=== PATIENT | male | born 1940 | race Caucasian/White ===

== ENCOUNTER → 2016-04-28 | Outpatient (CLI) | payer OTHER ==
[~2016-04-28] MED LIST: ARC10 PO; ASPEC81 PO; AZL/5 PO; CLC150 PO; CYM30 PO; HYDR-3983 PO; JNV100 PO; LPR25 PO; LPT40 PO; NRN400 PO; PLV75 PO; RQP25 PO; TRC48 PO
[2016-04-28 13:36] LABS: URINE APPEARANCE CLEAR (CLEAR); URINE BILIRUBIN NEG (NEG); URINE COLOR DK YELLOW; URINE NITRITE NEG (NEG); URINE SPECIFIC GRAVITY 1.023 (1.000-1.030); UROBILINOGEN NEG (NEG); ZZUR CULT IF INDIC CLEAN CATCH NO
[2016-04-28 13:38] LABS: MANUAL MICROSCOPIC REQUIRED? NO; REVIEW REQ? NO
== END | disposition home or self-care (01) ==
LOC: C.LABMFLN 09:39
PROVIDERS: ATTEND Family Medicine
DX: R35.0 Frequency of micturition (principal)

== ENCOUNTER → 2016-07-23 | Outpatient (CLI) | payer OTHER ==
[~2016-07-23] MED LIST changes: +ASPI81TA28 PO; +ATOR-26 PO; +CETI10TA84 PO; +CLOP1TAB15 PO; +DONE10TA12 PO; +DULO1CAP40 PO; +FINA5TAB PO; +FOLI1TAB7 PO; +GLC/500 PO; +IPRA1AER2 INH; +LEVO1TAB35 PO; +MEMA1CAP6 PO; +MIDO5TAB PO; +NTRGSL/4 UT; +PRED20TA2 PO; +ROPI0.5T15 PO; +SITA100T3 PO; +SPRIN/30 INH; +VNTHFA/IN INH
[2016-07-23 19:18] LABS: INFLUENZA A PCR Neg for Influ A (NEG); INFLUENZA B PCR Neg for Influ B (NEG)
--- NOTE | 2016-07-30 10:08 | CODING QUERY MEDICAL NECESSITY ---
SUPPORTING DIAGNOSIS NEEDED Dr. Bean, A supporting diagnosis is required for the test/procedure performed on this patient in order for us to be reimbursed by the patient's insurance. Please provide a supporting diagnosis for the following test/procedure listed below next to the test name along with your signature. *If there is no additional diagnosis for this patient that would support the following test/procedure please document that below next to the test/procedure. Test(s)/Procedure(s) that require a supporting diagnosis: * [id number] PSA DIAGNOSIS: DATE OF SERVICE: 07/23/16 Provider Signature: Date: Thank you Gilberto Alatorre [facility] Information Management Once completed, please kindly fax back to [phone] For questions please call [phone]
== END | disposition home or self-care (01) ==
LOC: C.LABMFLN 09:49
PROVIDERS: ATTEND Family Medicine
DX: J45.909 Unspecified asthma, uncomplicated (principal); J20.9 Acute bronchitis, unspecified; N40.1 Benign prostatic hyperplasia with lower urinary tract symptoms

== ENCOUNTER → 2016-10-16 | Outpatient (CLI) | payer OTHER ==
[~2016-10-16] MED LIST changes: -ASPI81TA28 PO; -ATOR-26 PO; -CETI10TA84 PO; -CLOP1TAB15 PO; -DONE10TA12 PO; -DULO1CAP40 PO; -FINA5TAB PO; -FOLI1TAB7 PO; -GLC/500 PO; -IPRA1AER2 INH; -LEVO1TAB35 PO; -MEMA1CAP6 PO; -MIDO5TAB PO; -NTRGSL/4 UT; -PRED20TA2 PO; -ROPI0.5T15 PO; -SITA100T3 PO; -SPRIN/30 INH; -VNTHFA/IN INH
[2016-10-16 18:33] LABS: BLOOD UREA NITROGEN 12 mg/dl (7-18); BUN/CREATININE RATIO 8.5 (10-20); CALCIUM 9.6 mg/dl (8.5-10.1); CARBON DIOXIDE 30 mmol/L (21-32); CHLORIDE 104 mmol/L (98-107); GLUCOSE 149 mg/dl (70-99); POTASSIUM 4.4 mmol/L (3.5-5.1); SODIUM 139 mmol/L (136-145)
[2016-10-17 07:43] LABS: ESTIMATED AVERAGE GLUCOSE 214 mg/dl; HA1C FLAG Normal (Normal)
== END | disposition home or self-care (01) ==
LOC: C.LABMFLN 11:54
PROVIDERS: ATTEND Family Medicine
DX: E11.65 Type 2 diabetes mellitus with hyperglycemia (principal)

== ENCOUNTER → 2017-02-18 | Outpatient (CLI) | payer OTHER ==
[~2017-02-18] MED LIST changes: -ARC10 PO; -ASPEC81 PO; +ASPI81TA28 PO; +ATOR-26 PO; -AZL/5 PO; +CETI10TA84 PO; -CLC150 PO; +CLOP1TAB15 PO; -CYM30 PO; +DONE10TA12 PO; +DULO1CAP40 PO; +FINA5TAB PO; +FOLI1TAB8 PO; +IPRA1AER2 INH; -JNV100 PO; -LPR25 PO; -LPT40 PO; +MEMA1CAP6 PO; +MIDO5TAB PO; -NRN400 PO; +NTRGSL/4 UT; -PLV75 PO; +ROPI0.5T15 PO; -RQP25 PO; +SITA100T3 PO; +SPRIN/30 INH; -TRC48 PO; +VNTHFA/IN INH
[2017-02-18 13:04] LABS: ESTIMATED AVERAGE GLUCOSE 160 mg/dl; HA1C FLAG Normal (Normal)
[2017-02-18 13:24] LABS: ALT/SGPT 19 U/L (12-78); BLOOD UREA NITROGEN 13 mg/dl (7-18); BUN/CREATININE RATIO 11.8 (10-20); CALCIUM 9.4 mg/dl (8.5-10.1); CARBON DIOXIDE 26 mmol/L (21-32); CHLORIDE 102 mmol/L (98-107); CHOLESTEROL 154 mg/dl (0-200); CREATININE 1.13 mg/dl (0.60-1.40); GLUCOSE 239 mg/dl (70-99); POTASSIUM 4.7 mmol/L (3.5-5.1); SODIUM 135 mmol/L (136-145)
[2017-02-18 13:35] LABS: CHOLESTEROL/HDL RATIO 3.7; HDL CHOLESTEROL 42 mg/dl; TRIGLYCERIDES 207 mg/dl (0-150); VERY LOW DENSITY LIPOPROT CALC 41 mg/dl
== END | disposition home or self-care (01) ==
LOC: C.LABMFLN 10:21
PROVIDERS: ATTEND Family Medicine
DX: E11.65 Type 2 diabetes mellitus with hyperglycemia (principal); E78.00 Pure hypercholesterolemia, unspecified; I25.10 Atherosclerotic heart disease of native coronary artery without angina pectoris; I95.9 Hypotension, unspecified

== ENCOUNTER → 2017-05-13 | Outpatient (CLI) | payer OTHER ==
[~2017-05-13] VITALS: Ht 170.2 cm; Wt 84.2 kg
[~2017-05-13] MED LIST changes: +FLUT50SP45 NAE; +GLYB-236 PO; +METO25TA56 PO
[2017-05-13 15:04] VITALS: Ht 170.2 cm; Wt 84.2 kg
--- NOTE | 2017-05-13 15:43 | PAT Medication Instructions ---
Service Date May 13, 2017. Current Home Medication List Albuterol Hfa (Ventolin Hfa), 2-4 PUFFS INH Q6H PRN for Cough Aspirin (Aspirin Ec), 81 MG PO QAM Atorvastatin (Lipitor), 80 MG PO QPM Cetirizine (Zyrtec), 10 MG PO QAM Clopidogrel (Plavix), 75 MG PO QAM Donepezil Hydrochloride (Aricept), 10 MG PO HS Duloxetine HCl (Duloxetine HCl), 60 MG PO QAM Fluticasone Propionate (Nasal) (Allergy Nasal [place] 24 Ho), 2 SPRAYS NOEMI QD PRN for Nasal Congestion Folic Acid (Folvite), 1 MG PO QAM Glyburide-Metformin (Glyburide/Metformin Hcl), 2 TAB PO BID Hydrocodone/Acetaminophen 7.5MG/325MG ([place] 7.5MG/325MG), 1 TAB PO TID PRN for Pain Ipratropium-Albuterol (Combivent Respimat), 1 PUFFS INH QID Memantine Hcl (Namenda Xr), 21 MG PO HS Metoprolol Tartrate (Lopressor) (Lopressor), 25 MG PO QAM Metoprolol Tartrate (Lopressor) (Lopressor), 12.5 MG PO HS Midodrine Hcl (Midodrine Hcl), 5 MG PO BID Nitroglycerin (Nitrostat), 0.4 MG UT PRN Ropinirole (Requip), 1.5 MG PO HS Sitagliptin Phosphate (Januvia), 100 MG PO DAILY Tiotropium [place] (Spiriva Handihaler), 1 CAP INH DAILY PRN for SOB/Wheezing Medication Instructions For Your Scheduled Surgery -Contact your neurological surgeon for instructions for: Aspirin (Aspirin Ec), 81 MG PO QAM Clopidogrel (Plavix), 75 MG PO QAM -Continue as directed: Nitroglycerin (Nitrostat), 0.4 MG UT PRN - Hold the following medications the night before surgery: Ropinirole (Requip), 1.5 MG PO HS - Hold the following medications the morning of surgery: Folic Acid (Folvite), 1 MG PO QAM Glyburide-Metformin (Glyburide/Metformin Hcl), 2 TAB PO BID Cetirizine (Zyrtec), 10 MG PO QAM Sitagliptin Phosphate (Januvia), 100 MG PO DAILY - Take the following medications the morning of surgery with a sip of water: Albuterol Hfa (Ventolin Hfa), 2-4 PUFFS INH Q6H PRN for Cough (if needed, and bring it with you to the hospital) Duloxetine HCl (Duloxetine HCl), 60 MG PO QAM Fluticasone Propionate (Nasal) (Allergy Nasal [place] 24 Ho), 2 SPRAYS NOEMI QD PRN for Nasal Congestion (if needed) Hydrocodone/Acetaminophen 7.5MG/325MG ([place] 7.5MG/325MG), 1 TAB PO TID PRN for Pain (if needed, can be taken up to four hours before surgery) Ipratropium-Albuterol (Combivent Respimat), 1 PUFFS INH QID Metoprolol Tartrate (Lopressor) (Lopressor), 25 MG PO QAM Midodrine Hcl (Midodrine Hcl), 5 MG PO BID Tiotropium [place] (Spiriva Handihaler), 1 CAP INH DAILY PRN for SOB/Wheezing ( if needed) - Take the following medications as scheduled the night before surgery: Albuterol Hfa (Ventolin Hfa), 2-4 PUFFS INH Q6H PRN for Cough (if needed) Atorvastatin (Lipitor), 80 MG PO QPM Donepezil Hydrochloride (Aricept), 10 MG PO HS Fluticasone Propionate (Nasal) (Allergy Nasal [place] 24 Ho), 2 SPRAYS NOEMI QD PRN for Nasal Congestion (if needed) Hydrocodone/Acetaminophen 7.5MG/325MG ([place] 7.5MG/325MG), 1 TAB PO TID PRN for Pain (if needed) Glyburide-Metformin (Glyburide/Metformin Hcl), 2 TAB PO BID Ipratropium-Albuterol (Combivent Respimat), 1 PUFFS INH QID Memantine Hcl (Namenda Xr), 21 MG PO HS Metoprolol Tartrate (Lopressor) (Lopressor), 12.5 MG PO HS Midodrine Hcl (Midodrine Hcl), 5 MG PO BID Tiotropium [place] (Spiriva Handihaler), 1 CAP INH DAILY PRN for SOB/Wheezing ( if needed) If you have any questions please call us at [phone] or [phone] or [phone]
[2017-05-13 16:18] LABS: BASO % 0.2 %; BASO ABS # 0.02 K/uL (0-0.2); EOS % 6.4 %; EOS ABS # 0.57 K/uL (0-0.5); HEMATOCRIT 39.9 % (42-52); HEMOGLOBIN 13.1 g/dL (14.0-18.0); IG# 0.05 K/uL (0.00-0.02); LYMPH % 29.7 %; LYMPH ABS # 2.66 K/uL (1.2-3.4); MEAN CELL VOLUME 89.7 fL (80-100); MEAN CORPUSCULAR HEMOGLOBIN 29.4 pg (25-34); MEAN CORPUSCULAR HGB CONC 32.8 g/dl (32-36); MEAN PLATELET VOLUME 9.8 fL (7.4-10.4); MONO % 11.4 %; MONO ABS # 1.02 K/uL (0.11-0.59); NEUT % 51.7 %; NEUT ABS # 4.65 K/uL (1.4-6.5); PLATELET COUNT 208 K/uL (130-400); RED CELL DISTRIBUTION WIDTH CV 13.8 % (11.5-14.5); RED CELL DISTRIBUTION WIDTH SD 45.1 fL (36.4-46.3); WHITE BLOOD COUNT 8.97 K/uL (4.8-10.8)
--- NOTE | 2017-05-13 16:25 | DIAGNOSTIC IMAGING REPORT ---
TWO VIEW CHEST CLINICAL HISTORY: Preoperative examination. FINDINGS: PA and lateral chest radiographs are compared to study dated 01/08/2017. The patient is status post midline sternotomy. The heart is enlarged and there is atherosclerotic calcification of the thoracic aorta. The pulmonary vasculature is noncongested. Chronic interstitial thickening is similar to previous. No airspace consolidation or pleural effusion is identified. There is no pneumothorax. The skeletal structures are osteopenic. Degenerative change is seen throughout the thoracic spine. IMPRESSION: Cardiomegaly with no active disease in the chest. Electronically signed by: Khurram Lozano M.D. 05/13/2017 4:24 PM Dictated Date/Time: 05/13/2017 4:23 PM
[2017-05-13 16:42] LABS: CALCIUM 9.1 mg/dl (8.5-10.1); CREATININE 1.03 mg/dl (0.60-1.40); POTASSIUM 4.9 mmol/L (3.5-5.1)
== END | disposition home or self-care (01) ==
LOC: C.LAB 08:00 → EDSTATUS 05-27 13:15
PROVIDERS: ATTEND Orthopaedic Surgery Orthopaedic Surgery of the Spine
DX: Z01.811 Encounter for preprocedural respiratory examination (principal); Z01.812 Encounter for preprocedural laboratory examination; I51.7 Cardiomegaly

== ENCOUNTER → 2017-06-30 | Outpatient (CLI) | payer OTHER ==
[~2017-06-30] MED LIST changes: +CYM/30 PO; +FENOFIBRATE PO; +SYMIN/8045 INH
[2017-06-30 18:08] LABS: BASO % 0.4 %; BASO ABS # 0.03 K/uL (0-0.2); EOS % 6.9 %; EOS ABS # 0.56 K/uL (0-0.5); HEMOGLOBIN 13.1 g/dL (14.0-18.0); IG# 0.03 K/uL (0.00-0.02); LYMPH % 27.3 %; LYMPH ABS # 2.22 K/uL (1.2-3.4); MEAN CELL VOLUME 90.5 fL (80-100); MEAN CORPUSCULAR HEMOGLOBIN 29.6 pg (25-34); MEAN CORPUSCULAR HGB CONC 32.8 g/dl (32-36); MEAN PLATELET VOLUME 10.2 fL (7.4-10.4); MONO % 10.5 %; MONO ABS # 0.85 K/uL (0.11-0.59); NEUT % 54.5 %; NEUT ABS # 4.44 K/uL (1.4-6.5); PLATELET COUNT 222 K/uL (130-400); RED CELL DISTRIBUTION WIDTH CV 14.5 % (11.5-14.5); RED CELL DISTRIBUTION WIDTH SD 48.4 fL (36.4-46.3); WHITE BLOOD COUNT 8.13 K/uL (4.8-10.8)
[2017-06-30 20:17] LABS: BLOOD UREA NITROGEN 12 mg/dl (7-18); CALCIUM 8.7 mg/dl (8.5-10.1); CARBON DIOXIDE 30 mmol/L (21-32); CREATININE 1.13 mg/dl (0.60-1.40); GLUCOSE 196 mg/dl (70-99); POTASSIUM 4.1 mmol/L (3.5-5.1); SODIUM 138 mmol/L (136-145)
== END | disposition home or self-care (01) ==
LOC: C.LABMFLN 11:29
PROVIDERS: ATTEND Orthopaedic Surgery Orthopaedic Surgery of the Spine
DX: Z01.812 Encounter for preprocedural laboratory examination (principal)

== ENCOUNTER 2017-07-21 05:18 | Inpatient (IN) | payer OTHER ==
[2017-07-02 10:25] VITALS: BMI 28.0
[2017-07-21] VITALS (16 sets, daily range): BP systolic 98–141; BP diastolic 61–99; PULSE 87–98; TEMP 36.2–37.1; O2SAT 94–99; BMI 28.0
[~2017-07-21] VITALS: Ht 170.2 cm; Wt 83.6 kg
[~2017-07-21 05:18] MED LIST changes: -DULO1CAP40 PO; +LACTATED RINGER'S 1000ML 1,000 ML IV SCH; -METO25TA56 PO; -SPRIN/30 INH; -VNTHFA/IN INH
[2017-07-21] MEDS ORDERED: CeleBREX 200 MG CAP PO SCH (06:00)
[2017-07-21] MEDS ORDERED: GABAPENTIN 300 MG CAP PO SCH (06:00)
[2017-07-21] MEDS ORDERED: CEFAZOLIN 2000MG IV PUSH 15 ML IV SCH (06:00)
[2017-07-21] MEDS ORDERED: ACETAMINOPHEN 500 MG TAB PO SCH (06:00)
[2017-07-21] MEDS ORDERED: MIDAZOLAM HCL 1 MG/ML 2ML VIAL ONE (06:37)
[2017-07-21] MEDS ORDERED: FENTANYL CITRATE INJ 50 MCG/1 ML 2 ML VIAL ONE ×2 (06:38→08:13)
[2017-07-21] MEDS ORDERED: BACITRACIN 50000 UNIT VIAL ONE (06:50)
--- NOTE | 2017-07-21 07:37 | History & Physical Bridge Note ---
H&P Re-Evaluation Bridge Note: I have examined the patient, reviewed the History & Physical and in the interval since the performance of the History & Physical I have noted the following changes of clinical significance: No changes noted
--- NOTE | 2017-07-21 07:38 | History and Physical ---
History & Physical Date July 21, 2017. Chief Complaint Neck and arm pain History of Present Illness The patient is a 76 year old male with complaints of neck and arm pain Past Medical/Surgical History Medical Problems: (1) Alzheimer disease (2) CAD (coronary artery disease) (3) Cat bite of hand (4) CKD (chronic kidney disease) (5) COPD (chronic obstructive pulmonary disease) (6) Parkinson disease (7) Pneumonia Surgical Problems: (1) Hx of CABG Additional History Hepatic Disease: No Endocrine Disorder: No Kidney Disease: No Hypertension: No Heart Disease: No Bleeding Tendencies: No Infectious Diseases: No Other: Diabetes Allergies Coded Allergies: Benzonatate (Verified Allergy, Unknown, ITCH, 07/02/17) Shrimp (Verified Allergy, Unknown, RASH, 07/02/17) Pramipexole (Verified Adverse Reaction, Unknown, HYPOTENSIVE, 07/21/17) Home Medications Scheduled Aspirin (Aspirin Ec), 81 MG PO QAM Atorvastatin (Lipitor), 80 MG PO QPM Budesonide/Formoterol Fumarate (Symbicort 80/4.5 Inhaler), 2 PUFFS INH BID Cetirizine (Zyrtec), 10 MG PO QAM Clopidogrel (Plavix), 75 MG PO QAM Donepezil Hydrochloride (Aricept), 10 MG PO HS Duloxetine HCl (Cymbalta), 1 CAP PO QAM Finasteride (Proscar), 5 MG PO QAM Folic Acid (Folvite), 1 MG PO QAM Glyburide-Metformin (Glyburide/Metformin Hcl), 2 TAB PO BID Ipratropium-Albuterol (Combivent Respimat), 1 PUFFS INH QID Memantine Hcl (Namenda Xr), 21 MG PO QAM Nitroglycerin (Nitrostat), 0.4 MG UT PRN Ropinirole (Requip), 0.5 MG PO HS Sitagliptin Phosphate (Januvia), 100 MG PO QAM [Fenofibrate], 134 MG PO QAM Scheduled PRN Fluticasone Propionate (Nasal) (Allergy Nasal [place] 24 Ho), 2 SPRAYS NOEMI QD PRN for Nasal Congestion Hydrocodone/Acetaminophen 7.5MG/325MG ([place] 7.5MG/325MG), 1 TAB PO TID PRN for Pain Physical Examination Skin: warm/dry, no rash Eyes: normal inspection, EOMI, sclerae normal ENT: normal ENT inspection, pharynx normal Head: normocephalic, atraumatic Neck: supple, no adenopathy, trachea midline Respiratory/Chest: lungs clear, normal breath sounds, no respiratory distress Cardiovascular: regular rate, rhythm, no edema, no murmur Abdomen / GI: normal bowel sounds, non tender Back: normal inspection Extremities: normal inspection, normal range of motion Neurologic/Psych: no motor/sensory deficits, alert, normal reflexes, oriented x 3 Diagnosis Cervical spinal stenosis with radiculopathy Plan of Treatment ACDF C5-6
[2017-07-21] MEDS ORDERED: EpHEDrine SULFATE INJ 50 MG/ML AMP IV PRN (07:45)
[2017-07-21] MEDS ORDERED: FENTANYL CITRATE INJ 50 MCG/1 ML 2 ML VIAL IV PRN (07:45)
[2017-07-21] MEDS ORDERED: HYDROmorphone INJ 0.5 MG/0.5 ML SYR IV PRN ×2 (07:45→09:15)
[2017-07-21] MEDS ORDERED: MEPERIDINE HCL 25 MG/ML CARP IV PRN (07:45)
[2017-07-21] MEDS ORDERED: ONDANSETRON INJ 2 MG/ML 2 ML VIAL IV PRN ×2 (07:45→09:15)
[2017-07-21] MEDS ORDERED: LABETALOL HCL IV 5 MG/ML 20ML IV PRN (07:45)
[2017-07-21] MEDS ORDERED: ATROPINE SULFATE 0.1 MG/ML 5ML SYR IV PRN (07:45)
[2017-07-21] MEDS ORDERED: HYDROmorphone INJ 2 MG/ML SYR/VIAL ONE ×2 (08:13→09:03)
[2017-07-21] MEDS ORDERED: FLOSEAL HEMOSTATIC MATRIX 10ML TOP ONE (08:58)
[2017-07-21] MEDS ORDERED: ROCURONIUM BROMIDE 10 MG/ML 5 ML VIAL ONE (08:59)
[2017-07-21] MEDS ORDERED: ONDANSETRON INJ 2 MG/ML 2 ML VIAL ONE ×2 (08:59→09:04)
[2017-07-21] MEDS ORDERED: DEXAMETHASONE SOD INJ 4 MG/ML VIAL ONE (08:59)
[2017-07-21] MEDS ORDERED: PROPOFOL IV EMULSION 10 MG/ML 20 ML VIAL ONE (08:59)
[2017-07-21] MEDS ORDERED: LIDOCAINE HCL 2% 2 ML VIAL (20MG/ML) ONE (08:59)
[2017-07-21] MEDS ORDERED: PHENYLEPHRINE 100MCG/ML 5ML SYR ONE (09:04)
[2017-07-21] MEDS ORDERED: EpHEDrine SULFATE 50MG/5ML SYR ONE (09:04)
[2017-07-21] MEDS ORDERED: NEOSTIGMINE METHYLSULFATE 1 MG/ML 10ML VIAL ONE (09:04)
[2017-07-21] MEDS ORDERED: GLYCOPYRROLATE INJ 0.2 MG/ML VIAL ONE (09:04)
--- NOTE | 2017-07-21 09:08 | [facility] Operative Report ---
Operative Report Operative Date July 21, 2017. Pre-Operative Diagnosis Cervical spinal stenosis with radiculopathy Post-Operative Diagnosis Cervical spinal stenosis with radiculopathy Procedure(s) Performed 1. Anterior cervical discectomy bilateral foraminotomies C5-6. #2 anterior cervical arthrodesis C5-6. #3 placement of cortical allograft filled with DBM 8 mm in height C5-6. #4 application of wiggins plate and screws across C5-6. 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 After informed consent obtained patient was taken to the operative suite underwent intubation and placed in this supine position on the Toro table in head [place] headholder. All bony prominences well-padded eyes inspected to ensure no external pressure placed upon. This point the anterior cervical spine was prepped and draped in normal sterile fashion. The assistance of fluoroscopy identified the C5-6 disc space transverse incision was placed along the right anterior aspect of the cervical spine overlying this region. Sharp dissection with the assistance of bipolar electrocautery was performed on August exposing the anterior cervical spine across C5-6. Soft retractors placed. Then performed a complete discectomy at C5-6 up to the uncovertebral joints bilaterally. This included removal of all posterior fibers longitudinal ligament bilateral foraminotomies. Endplates were then burred to subcortical bleeding bone and a 8 mm cortical allograft filled DBM was tapped in position. Distracting apparatus was removed. An anterior aspect burred smooth cortical surface and a wiggins plate and screws applied with the assistance of fluoroscopy. Incision was then copious irrigated explored to ensure there is no damage to surrounding structures remaining bleeding. 10 round IRVING drain inserted. The incision then closed with 2 Vicryl fascia 4 Monocryl for fashion closure Steri-Strips sterile dressings placed. Patient weakened the PACU stable condition. Please note Chelo Ames present throughout the entire procedure involved in patient positioning complex portions of the surgery and fashion closure. I attest to the content of the Intraoperative Record and any orders documented therein. Any exceptions are noted below.
[2017-07-21] MEDS ORDERED: DO NOT ADMINISTER FLU VACCINE PRN (09:15)
[2017-07-21] MEDS ORDERED: HYDROCODONE/ACETAMIN 5/325MG TAB PO PRN (09:15)
[2017-07-21] MEDS ORDERED: MAGNESIUM HYDROXIDE SUSP 30 ML UDC PO PRN (09:15)
[2017-07-21] MEDS ORDERED: RACEPINEPHRINE 2.25% NEBU SOLN 0.5 ML VIAL INH PRN (09:15)
[2017-07-21] MEDS ORDERED: DEXAMETHASONE INJ 8 MG in SYRINGE 0 ML IV PRN (09:15)
[2017-07-21] MEDS ORDERED: NALOXONE HCL 0.4 MG/1 ML VIAL/CARP IV PRN (09:15)
[2017-07-21] MEDS ORDERED: FLUTICASONE PROPIONATE NA SPR 16 GM BTL NAE PRN (09:15)
[2017-07-21] MEDS ORDERED: DO NOT ADMINISTER PNEUMOCOCCAL VACCINE PRN (09:15)
[2017-07-21] MEDS ORDERED: ACETAMINOPHEN IV 100 ML IV PRN (09:15)
[2017-07-21] MEDS ORDERED: HYDROCODONE/ACETAMINOPHEN 7.5/325MG TAB PO PRN (09:15)
[2017-07-21] MEDS ORDERED: NITROGLYCERIN 0.4 MG SL PER TAB CHARGE UT PRN (09:15)
[2017-07-21] MEDS ORDERED: DiphenhydrAMINE HCL 50 MG/ML VIAL IV PRN (09:15)
--- NOTE | 2017-07-21 09:47 | DIAGNOSTIC IMAGING REPORT ---
INTRAOPERATIVE RADIOGRAPHS CLINICAL HISTORY: C5-C6 cervical spinal fusion. Fluoroscopy time: 8 seconds. FINDINGS: 2 spot fluoroscopic images of the cervical spine are presented. An endotracheal tube is in place. There has been discectomy at C5-C6 with anterior fusion at this level. The orthopedic hardware appears intact. IMPRESSION: Intraoperative images from C5 to C6 spinal fusion as above. Electronically signed by: Khurram Lozano M.D. 07/21/2017 9:45 AM Dictated Date/Time: 07/21/2017 9:44 AM
--- NOTE | 2017-07-21 10:27 | Anesthesiology Progress Note ---
Anesthesia Post Op Note Date & Time July 21, 2017 at 10:26 Vital Signs Pain Intensity: 0 Vital Signs Past 12 Hours Date Time Temp Pulse Resp B/P (MAP) Pulse Ox O2 Delivery O2 Flow Rate FiO2 07/21/17 10:00 92 18 111/66 98 Oxymask 4 07/21/17 09:50 95 16 115/70 97 Oxymask 10 07/21/17 09:40 105 17 130/77 97 Oxymask 10 07/21/17 09:30 105 19 140/79 99 Oxymask 10 07/21/17 09:21 36.2 98 15 125/72 100 Oxymask 10 07/21/17 06:01 36.4 87 18 141/99 97 Room Air Notes Mental Status: alert / awake / arousable, participated in evaluation Pt Amnestic to Procedure: Yes Nausea / Vomiting: adequately controlled Pain: adequately controlled Airway Patency, RR, SpO2: stable & adequate BP & HR: stable & adequate Hydration State: stable & adequate Anesthetic Complications: no major complications apparent
[2017-07-21] MEDS: SODIUM CHLORIDE 0.9% 1000ML 1,000 ML IV SCH (11:09)
[2017-07-21] MEDS ORDERED: SCOPOLAMINE 1.5 MG TDSY TD SCH (12:00)
[2017-07-21] MEDS ORDERED: HYDR-5688 PO (12:31)
--- NOTE | 2017-07-21 12:32 | Discharge Instructions ---
Discharge Instructions Date of Service July 21, 2017. Admission Reason for Admission: Cervical Spinal Stenosis C5-6 Discharge Discharge Diagnosis / Problem: cervical stenosis Discharge Goals Goal(s): Improve function Activity Recommendations Activity Limitations: per Instructions/Follow-up section . Instructions / Follow-Up Instructions / Follow-Up ACTIVITY RECOMMENDATIONS: SELF CARE INSTRUCTIONS AFTER CERVICAL FUSIONS 1. No smoking. Smoking drastically decreases the chance of a solid fusion. 2. No bending, lifting more than 5 pounds, or twisting (roll like a log when turning in bed). 3. You may shower 3 days after surgery. Thoroughly dry wound. Do not soak in the tub. 4. Cervical collar: Must be worn at all times including sleeping. You may remove the brace only to bath, eat and if you are sitting in a recliner. 5. Please walk as much as you can for exercise. Gradually increase the distance that you walk as your endurance increases. SPECIAL CARE INSTRUCTIONS: VERY IMPORTANT TO READ AND REVIEW A. Do not take any anti-inflammatory medications (i.e. Indocin, Advil, Aspirin, Naprosyn, Aleve, Motrin, etc.) as these may inhibit the chance of a solid fusion. Tylenol is okay to take. B. Your surgical incision has been closed with a cosmetic suture under the skin that will dissolve in about 6 weeks. In 14 days, you can use a pair of clean scissors and cut the suture that is left outside of the skin at the ends of your incision. C. Complications are uncommon, but please contact us if you have any signs or symptoms of: 1. wound infection (fever higher than 102.5 degrees F, redness, separation of wound, drainage, or increasing pain from the incision) 2. blood clots in legs (pain, swelling, redness and warmth in legs) 3. urinary tract infection (fever higher than 102.5 degrees, burning upon urination or increased frequency of urination) 4. nerve problems (inability to walk on your toes or heels, numbness, loss of bowel or bladder control) 5. any other symptoms that concern you. D. Please call the office at if you have any concerns or questions about your operation or recovery. MANAGING PAIN AFTER SPINAL SURGERY 1. Narcotic medication is intended for short-term use and will be provided for surgical pain. Surgical pain usually lasts for a period of 4-6 weeks. Narcotic medication includes Percocet, Vicodin, Darvocet, Tylenol #3 or Lortab. 2. Longer-term pain is more appropriately treated with non-narcotic medication such as Tylenol ES. 3. Muscle spasm is not appropriately treated with narcotics. Muscle relaxers such as Soma, Flexeril or Skelaxin can be used along with Tylenol ES. 4. Remember that we all live with some "aches and pains". This is not unusual or uncommon after an injury or as we get older. 5. We will provide appropriate medication within the normal guidelines of their prescribed use. We will also be very cautious and aware of potential abuse and extended duration of patients' medication needs. 6. Please allow 2-3 days to process refills. Prescriptions will not be mailed but must be picked up at the office. FOLLOW UP VISIT: Keep your scheduled follow-up appointment. Any questions, please call the office at . Current Hospital Diet Patient's current hospital diet: Clear Liquid Diet Discharge Diet Recommended Diet: Regular Diet Procedures Procedures Performed: 1. Anterior cervical discectomy bilateral foraminotomies C5-6. #2 anterior cervical arthrodesis C5-6. #3 placement of cortical allograft filled with DBM 8 mm in height C5-6. #4 application of wiggins plate and screws across C5-6. Pending Studies Studies pending at discharge: no Medical Emergencies . Who to Call and When: Medical Emergencies: If at any time you feel your situation is an emergency, please call 911 immediately. . Non-Emergent Contact Non-Emergency issues call your: Primary Care Provider . "Provider Documentation" section prepared by Esequiel Ramos. .
--- NOTE | 2017-07-21 12:40 | Medical Consult ---
History General Date of Service: July 21, 2017. Stated Complaint: Cervical Spinal Stenosis C5-6 HPI The patient is a 76 year old male who presents to [facility] with complaints of Cervical Spinal Stenosis C5-6. The patient's primary care provider is Georgi Wu M.D.. This is a 76-year-old male with prior history of coronary artery disease status post CABG, type 2 diabetes, COPD, ongoing tobacco abuse underwent cervical spinal decompression surgery done by Dr. Ramos Patient recovering well postop Denies of any chest pain or shortness of breath No fever or chills No dyspnea on exertion Historian: patient Review of Systems Constitutional: reports: no symptoms Eyes: reports: no symptoms ENT: reports: no symptoms Cardiovascular: reports: no symptoms Respiratory: reports: no symptoms Gastrointestinal: reports: no symptoms Musculoskeletal: reports: neck pain (Chronic neck pain), other (Status post cervical spinal surgery) Neurologic: reports: no symptoms Family History Cancer Diabetes mellitus Social History Hx Tobacco Use In Past Year?: Yes (8 CIG A DAY SINCE AGE 18) Smoking Status: Current Every Day Smoker Marital status: Housing status: lives with significant other Occupational Status: retired Allergies Coded Allergies: Benzonatate (Verified Allergy, Unknown, ITCH, 07/02/17) Shrimp (Verified Allergy, Unknown, RASH, 07/02/17) Pramipexole (Verified Adverse Reaction, Unknown, HYPOTENSIVE, 07/21/17) Current Medications Reported Home Medications Medications Dose Route/Sig Max Daily Dose Days Date Category Dose Instructions Bow 5MG/325MG (Acetaminophen/Hydrocodone Bitart) Tab 1-2 Tab PO Q4H PRN 30 07/21/17 Rx PRN PAIN Symbicort 80/4.5 Inhaler (Budesonide/Formoterol Fumarate) Aero 2 Puffs INH BID 07/02/17 Reported Proscar (Finasteride) 5 Mg Tab 5 Mg PO QAM 07/02/17 Reported Cymbalta (Duloxetine HCl) 30 Mg Cap 1 Cap PO QAM 30 07/02/17 Reported [Fenofibrate] 134 Mg PO QAM 07/02/17 Reported Glyburide/Metformin Hcl (Glyburide-Metformin) 1 Tab Tab 2 Tab PO BID 05/13/17 Reported Allergy Nasal [place] 24 Ho (Fluticasone Propionate (Nasal)) 50 Mcg/Act Spr 2 Sprays NOEMI QD PRN 3/8/18 Reported Combivent Respimat (Ipratropium-Albuterol) 1 Aer Aer 1 Puffs INH QID 01/05/17 Reported Nitrostat (Nitroglycerin) 0.4 Mg Tab 0.4 Mg UT PRN 01/05/17 Reported Aricept (Donepezil Hydrochloride) 10 Mg Tab 10 Mg PO HS 01/05/17 Reported Aspirin Ec (Aspirin) 81 Mg Tab 81 Mg PO QAM 01/05/17 Reported PT WILL FOLLOW INSTRUCTIONS FROM RX'ING Lipitor (Atorvastatin Calcium) 80 Mg Tab 80 Mg PO QPM 01/05/17 Reported Plavix (Clopidogrel Bisulfate) 75 Mg Tab 75 Mg PO QAM 01/05/17 Reported PT FOLLOW INSTRUCTIONS FROM RX'ING [place] 7.5MG/325MG (Acetaminophen/Hydrocodone Bitart) Tab 1 Tab PO TID PRN 01/05/17 Reported PRN PAIN Requip (Ropinirole HCl) 0.5 Mg Tab 0.5 Mg PO HS 01/05/17 Reported Januvia (Sitagliptin Phosphate) 100 Mg Tab 100 Mg PO QAM 01/05/17 Reported Folvite (Folic Acid) 1 Mg Tab 1 Mg PO QAM 01/05/17 Reported Zyrtec (Cetirizine HCl) 10 Mg Tab 10 Mg PO QAM 01/05/17 Reported Namenda Xr (Memantine Hcl) 21 Mg Cap 21 Mg PO QAM 01/05/17 Reported Physical Physical Exam Vital Signs: Date Time Temp Pulse Resp B/P (MAP) Pulse Ox O2 Delivery O2 Flow Rate FiO2 07/21/17 11:50 36.2 87 16 99/63 (75) 97 Nasal Cannula 4.0 07/21/17 11:24 90 12 97 Nasal Cannula 4.0 07/21/17 11:17 36.4 87 16 105/66 (79) 98 Nasal Cannula 4.0 07/21/17 10:50 36.5 89 16 99/64 94 Nasal Cannula 4.0 07/21/17 10:40 88 17 103/62 98 Nasal Cannula 4 07/21/17 10:30 36.1 88 19 107/62 97 Nasal Cannula 4 07/21/17 10:20 90 18 103/63 96 Nasal Cannula 4 07/21/17 10:10 92 14 110/65 96 Oxymask 4 07/21/17 10:00 92 18 111/66 98 Oxymask 4 07/21/17 09:50 95 16 115/70 97 Oxymask 10 07/21/17 09:40 105 17 130/77 97 Oxymask 10 07/21/17 09:30 105 19 140/79 99 Oxymask 10 07/21/17 09:21 36.2 98 15 125/72 100 Oxymask 10 07/21/17 06:01 36.4 87 18 141/99 97 Room Air General Appearance: WELL-APPEARING, NO APPARENT DISTRESS Head: NORMOCEPHALIC, ATRAUMATIC Eyes: SCLERAE NORMAL Neck: other (Cervical collar present/status post cervical spinal surgery drain present) Respiratory: BREATH SOUNDS NORMAL, CLEAR TO AUSCULTATION, NO RESPIRATORY DISTRESS Cardiovasular: REGULAR RATE/RHYTHM, NORMAL S1S2 Abdomen: NON TENDER Back: NORMAL INSPECTION Upper Extremities: NO EDEMA Neuro: ALERT, ORIENTED x 3, NORMAL SPEECH Psychiatric: NORMAL AFFECT Diagnostics Labs Results Past 24 Hours Test 07/21/17 05:42 07/21/17 09:33 Range/Units Bedside Glucose 174 186 70-99 mg/dl Impression Assessment and Plan CERVICAL SPINAL STENOSIS S/P SURGERY : Patient underwent anterior cervical discectomy/bilateral for laminectomy at C5/ C6 Level by Dr. Ramos today POD # 0 Continue management as per orthopedics HX OF CAD S/P CABG : History of CAD status post coronary artery bypass grafting 3 vessel in 2006 Had preop evaluation done by his cardiology Dr. Gore on 06/21/2017 found to be stable to proceed for spinal surgery per cardiac standpoint No report of angina Recent Cardiolite stress test was negative for stress-induced ischemia or angina Aspirin and Plavix on hold secondary to spinal decompression surgery Should be resumed when safe from bleeding risk per spinal orthopedics surgery TYPE 2 DM : Hold oral meds BSG elevated secondary to IV steroid given intraoperatively and postop Insulin sliding scale while inpatient BSG before meals and at bedtime Pharmacy consulted for glycemic management BALDO on CKD STAGE 3 : Baseline creatinine 1.2-1.3 per lab work on 12/2016 Creatinine elevated to 1.5, possible secondary to dehydration, intraoperative volume loss Ordered for IV fluids NSAIDs, contrast studies Ordered to check PRP in a.m. HX OF COPD : Respiratory status stable Patient will be continued with outpatient inhalers CAROTID ARTERY DISEASE : History of known carotid stenosis with an occluded left internal carotid and 50- 69% stenosis in the right internal carotid artery History of TIA secondary to occluded carotid artery No focal neurological deficit On aspirin Plavix and statin Aspirin and statin resumed by orthopedics HYPERLIPIDEMIA : Continue statin ALLERGIC RHINITIS : On Flonase CODE STATUS : FULL CODE DVT PROPHYLAXIS : SCD and teds Pharmacological anticoagulation avoided secondary to recent spinal surgery DISPOSITION : Per primary team Admit To Med/Surg DVT Prophylaxis T.E.D. stockings, SCDs
[2017-07-21] MEDS ORDERED: GLUCOSE 40% GEL 15 GM TUBE PO PRN (12:45)
[2017-07-21] MEDS ORDERED: DEXTROSE 50% 50 ML SYR IV PRN (12:45)
[2017-07-21] MEDS ORDERED: GLUCOSE 10 TABS/TUBE PO PRN (12:45)
[2017-07-21] MEDS ORDERED: GLUCAGON FOR INJ 1 MG VIAL SQ PRN (12:45)
[2017-07-21] MEDS ORDERED: PHARMACY GLYCEMIC MGMT CONSULT PRN (13:02)
[2017-07-21 13:04] LABS: HEMATOCRIT 37.3 % (42-52); HEMOGLOBIN 12.2 g/dL (14.0-18.0); MEAN CELL VOLUME 88.6 fL (80-100); MEAN PLATELET VOLUME 9.5 fL (7.4-10.4); PLATELET COUNT 214 K/uL (130-400); RED CELL DISTRIBUTION WIDTH CV 14.2 % (11.5-14.5); RED CELL DISTRIBUTION WIDTH SD 46.3 fL (36.4-46.3); WHITE BLOOD COUNT 8.23 K/uL (4.8-10.8)
[2017-07-21 13:27] LABS: CALCIUM 8.5 mg/dl (8.5-10.1); CREATININE 1.51 mg/dl (0.60-1.40); POTASSIUM 4.2 mmol/L (3.5-5.1)
[2017-07-21 13:29] LABS: HEMOGLOBIN A1C 8.5 % (4.5-5.6)
[2017-07-21 13:33] LABS: MEAN CORPUSCULAR HGB CONC 32.7 g/dl (32-36)
[2017-07-21] MEDS: IPRATROPIUM BROMIDE/ALBUTEROL respimat INH INH SCH ×3 (13:35→21:17)
[2017-07-21] MEDS ORDERED: INSULIN GLARGINE SOLOSTAR 100 UNITS/ML 3 ML PEN SC ONE (14:00)
[2017-07-21] MEDS: INSULIN ASPART 100 UNITS/ML 3 ML PEN SC SCH ×4 (14:34→23:49)
--- NOTE | 2017-07-21 15:03 | Pharmacy Progress Note ---
Pharmacy Glycemic Short Note 2 Date of Service July 21, 2017. OUTPATIENT ANTIDIABETIC REGIMEN: * Glyburide/Metformin 2 tabs PO BID * Januvia 100mg PO qAM * HbA1c: 8.5% (07/21/17) ASSESSMENT: * Mr Bermudez is a 76yo type 2 diabetic male, POD #0 s/p cervical procedure with Dr Ramos. * Patient received Dexamethasone 12mg IV x1 dose pre-op this morning, which is expected to cause significant steroid-induced hyperglycemia. * Post-op BS mg/dL (note: this may be post-prandial?) * Lantus/Novolog (basal/bolus) regimen initiated immediately upon admission to floor. PLAN FOR INPATIENT GLYCEMIC CONTROL: * Hold outpatient oral diabetes medications * Basal insulin * Lantus 25 units SQ x1 dose JAZLYN * Lantus x1 dose this PM, dependent on BSG: -- If BSG less than 120mg/dL: give 0 units -- If BSG 120-180mg/dL: give 8 units -- If BSG greater than 180mg/dL: give 15 units * Bolus insulin * NovoLog per scale ACHS or Q6hrs while NPO plus 0000,0400 tonight * Goal Range: Low 110 mg/dL - High 140 mg/dL * Correction Factor: 25 mg/dL/unit * Nutritional / Prandial insulin per carb ratio of 1 unit per 8 grams CHO consumed PLAN FOR DISCHARGE: * Patient's current A1c (8.5%) indicates slightly sub-optimal glycemic control for a 76yo pt with multiple comorbidities (goal closer to 7.5%). * Patient may require adjustments to outpt regimen on discharge. * Recommend f/u with PCP to work toward optimizing A1c.
[2017-07-21] MEDS: CHECK SCOPOLAMINE PATCH PLACEMENT SCH ×2 (15:48→23:41)
[2017-07-21] MEDS: CEFAZOLIN IV 2,000 MG in SYRINGE 0 ML IV SCH ×2 (16:13→23:41)
[2017-07-21] MEDS ORDERED: SODIUM CHLORIDE 0.9% 1000ML 1,000 ML IV SCH (17:30)
[2017-07-21] MEDS ORDERED: INSULIN GLARGINE SOLOSTAR 100 UNITS/ML 3 ML PEN SC SCH (21:00)
[2017-07-21] MEDS ORDERED: DONEPEZIL HCL 10 MG TAB PO SCH (21:00)
[2017-07-21] MEDS ORDERED: ROPINIROLE HCL 0.25 MG TAB PO SCH (21:00)
[2017-07-21] MEDS ORDERED: ATORVASTATIN 40 MG TAB PO SCH (21:00)
[2017-07-21] MEDS: BUDESONIDE/FORMOTEROL FUMARATE 80/4.5 60 PUFFS/INHALER INH SCH (21:17)
[2017-07-21] MEDS: DOCUSATE SODIUM 100 MG CAP PO SCH (21:20)
[2017-07-22] VITALS (11 sets, daily range): BP systolic 91–102; BP diastolic 52–63; PULSE 58–84; TEMP 36.6–37.5; O2SAT 93–99; Ht 170.2 cm; Wt 83.6 kg
[2017-07-22] MEDS: CARBOHYDRATES FOR HYPOGLYCEMIA PO PRN ×2 (03:59→05:01)
[2017-07-22] MEDS: INSULIN ASPART 100 UNITS/ML 3 ML PEN SC SCH ×3 (04:00→12:32)
[2017-07-22] MEDS: SODIUM CHLORIDE 0.9% 1000ML 1,000 ML IV SCH (04:40)
[2017-07-22] MEDS ORDERED: NURSING VERBAL MED ORDER ONE (04:45)
[2017-07-22 06:34] LABS: HEMATOCRIT 31.9 % (42-52); HEMOGLOBIN 10.7 g/dL (14.0-18.0); MEAN CELL VOLUME 88.1 fL (80-100); MEAN CORPUSCULAR HEMOGLOBIN 29.6 pg (25-34); MEAN CORPUSCULAR HGB CONC 33.5 g/dl (32-36); MEAN PLATELET VOLUME 9.7 fL (7.4-10.4); PLATELET COUNT 212 K/uL (130-400); RED CELL DISTRIBUTION WIDTH CV 14.3 % (11.5-14.5); RED CELL DISTRIBUTION WIDTH SD 46.4 fL (36.4-46.3); WHITE BLOOD COUNT 14.05 K/uL (4.8-10.8)
[2017-07-22] MEDS ORDERED: METOPROLOL TARTRATE 1 MG/ML VIAL ONE (06:44)
[2017-07-22 07:01] LABS: CALCIUM 8.5 mg/dl (8.5-10.1); CREATININE 1.1 mg/dl (0.60-1.40); POTASSIUM 3.9 mmol/L (3.5-5.1)
--- NOTE | 2017-07-22 07:48 | Anesthesiology Progress Note ---
Anesthesia Post Op Note Date & Time July 22, 2017 at 07:47 Vital Signs Pain Intensity: 0.0 Vital Signs Past 12 Hours Date Time Temp Pulse Resp B/P (MAP) Pulse Ox O2 Delivery O2 Flow Rate FiO2 07/22/17 07:07 83 16 94 Room Air 07/22/17 06:00 36.6 78 16 100/62 96 Room Air 07/22/17 04:00 36.7 80 16 97/54 99 Nasal Cannula 2.0 07/22/17 03:51 58 16 99 Nasal Cannula 4.0 07/22/17 02:01 37.0 82 16 99/60 99 Nasal Cannula 4.0 07/22/17 00:00 36.9 84 16 102/63 98 Nasal Cannula 4.0 07/21/17 23:09 92 16 98 Nasal Cannula 4.0 07/21/17 22:00 37.1 90 16 98/61 98 Nasal Cannula 4.0 07/21/17 21:15 36.5 94 18 112/70 (84) 99 Nasal Cannula 4.0 07/21/17 20:00 Nasal Cannula 3.0 07/21/17 20:00 36.8 88 14 105/66 98 Nasal Cannula 3.0 Notes Mental Status: alert / awake / arousable, participated in evaluation Pt Amnestic to Procedure: Yes Nausea / Vomiting: adequately controlled Pain: adequately controlled Airway Patency, RR, SpO2: stable & adequate BP & HR: stable & adequate Hydration State: stable & adequate Anesthetic Complications: no major complications apparent
[2017-07-22] MEDS: CEFAZOLIN IV 2,000 MG in SYRINGE 0 ML IV SCH (07:54)
[2017-07-22] MEDS: CHECK SCOPOLAMINE PATCH PLACEMENT SCH (07:55)
[2017-07-22] MEDS: BUDESONIDE/FORMOTEROL FUMARATE 80/4.5 60 PUFFS/INHALER INH SCH (08:47)
[2017-07-22] MEDS: IPRATROPIUM BROMIDE/ALBUTEROL respimat INH INH SCH (08:47)
[2017-07-22] MEDS: DOCUSATE SODIUM 100 MG CAP PO SCH (08:54)
[2017-07-22] MEDS ORDERED: DULOXETINE (CYMBALTA) 30 MG CAP PO SCH (09:00)
[2017-07-22] MEDS ORDERED: CETIRIZINE HCL 10 MG TAB PO SCH (09:00)
[2017-07-22] MEDS ORDERED: ASPIRIN 81 MG ECTAB PO SCH (09:00)
[2017-07-22] MEDS ORDERED: INSULIN GLARGINE SOLOSTAR 100 UNITS/ML 3 ML PEN SC ONE (09:00)
[2017-07-22] MEDS ORDERED: FINASTERIDE 5 MG TAB PO SCH (09:00)
[2017-07-22] MEDS ORDERED: SITAGLIPTIN 100 MG TAB PO SCH (09:00)
--- NOTE | 2017-07-22 13:12 | Discharge Summary ---
Orthopedic Discharge Summary Admission Date/Reason July 21, 2017 at 07:30 Cervical Spinal Stenosis C5-6. Discharge Date/Disposition July 22, 2017 Home Diagnosis Principal Diagnosis: Cervical spinal stenosis Admission Physical Exam As per Admitting History & Physical. Hospital Course Patient underwent anterior cervical discectomy and fusion tolerated as well as taken to the orthopedic floor postoperatively. Postop day #1 is swallowing without difficulty had no hoarseness. Upperglade his arm symptoms are markedly improved. IRVING drain decreased appropriately. Subsequently he was discharged home. Discharge orders instructions can found on the chart for further review. Discharge Instructions Please refer to the electronic Patient Visit Report (Discharge Instructions) for additional information.
[2017-07-23] MEDS ORDERED: BISACODYL 10 MG SUPP PR PRN (06:00)
[2017-07-23] MEDS ORDERED: BISACODYL 5 MG TABEC PO PRN (06:00)
[2017-07-24] MEDS ORDERED: POLYETHYLENE (MIRALAX) 17 GM PACK PO SCH (09:00)
== END 2017-07-22 12:54 | disposition home or self-care (01) | DRG 472 ==
LOC: C.ACU 05:18 → C.3E 07:30 → ENRESERV 10:07
PROVIDERS: ADMIT Orthopaedic Surgery Orthopaedic Surgery of the Spine; ATTEND Orthopaedic Surgery Orthopaedic Surgery of the Spine
PROC: 0RT30ZZ Resection of Cervical Vertebral Disc, Open Approach (ICD-10-PCS; principal; 2017-07-21 07:45)
PROC: 0RG Upper Joints, Fusion (ICD-10-PCS; principal; 2017-07-21 07:45)
DX: M48.02 Spinal stenosis, cervical region (principal); N17.9 Acute kidney failure, unspecified; G30.9 Alzheimer's disease, unspecified; F02.80 Dementia in other diseases classified elsewhere, unspecified severity, without behavioral disturbance, psychotic disturbance, mood disturbance, and anxiety; I25.10 Atherosclerotic heart disease of native coronary artery without angina pectoris; N18.3 Chronic kidney disease, stage 3 (moderate); J44.9 Chronic obstructive pulmonary disease, unspecified; G20 Parkinson's disease; M54.12 Radiculopathy, cervical region; Z95.1 Presence of aortocoronary bypass graft; I65.22 Occlusion and stenosis of left carotid artery; E78.5 Hyperlipidemia, unspecified; Z79.82 Long term (current) use of aspirin; E11.9 Type 2 diabetes mellitus without complications; F17.200 Nicotine dependence, unspecified, uncomplicated; Z83.3 Family history of diabetes mellitus

== ENCOUNTER 2018-04-05 13:16 | Inpatient (IN) ==
[2018-04-05 14:17] LABS: Basophils % (auto) 0.7 %; Eosinophils # (auto) 0.49 K/uL (0-0.5); Eosinophils % (auto) 3.4 %; Hematocrit (blood only) 32.4 % (42-52); Hemoglobin 10.2 g/dL (14.0-18.0); Immature Granulocytes % (auto) 1.4 %; Lymphocytes # (auto) 2.61 K/uL (1.2-3.4); Lymphocytes % (auto) 18.1 %; Mean Corpuscular Hgb Conc 31.5 g/dL (32-36); Mean Corpuscular Volume 92.3 fL (80-100); Mean Platelet Volume 9.3 fL (7.4-10.4); Monocytes # (auto) 1.84 K/uL (0.11-0.59); Monocytes % (auto) 12.8 %; Neutrophils # (auto) 9.17 K/uL (1.4-6.5); Neutrophils % (auto) 63.6 %; Platelet Count 450 K/uL (130-400); RDW Coefficient of Variation 17.5 % (11.5-14.5); RDW Standard Deviation 56.9 fL (36.4-46.3); Red Blood Count 3.51 M/uL (4.7-6.1); White Blood Count 14.41 K/uL (4.8-10.8)
[2018-04-05 14:38] LABS: INR 1.1 (0.9-1.1); Prothrombin Time 11.1 Seconds (9.0-12.0)
[2018-04-05 14:42] LABS: Alanine Aminotransferase 36 U/L (12-78); Albumin Level 2.4 gm/dl (3.4-5.0); Aspartate Aminotransferase 57 U/L (15-37); BUN Creatinine Ratio 21.5 (10-20); Blood Urea Nitrogen 22 mg/dl (7-18); Calcium 8.8 mg/dl (8.5-10.1); Carbon Dioxide 28 mmol/L (21-32); Chloride 103 mmol/L (98-107); Creatinine Clr Calc Pharmacy 58.5 ml/min; Est GFR (African American) 83.9; Est GFR (Non-African American) 72.4; Glucose 189 mg/dl (70-99); Magnesium 1.9 mg/dl (1.8-2.4); Potassium 4.5 mmol/L (3.5-5.1); Sodium 136 mmol/L (136-145)
[2018-04-05 14:47] LABS: Albumin Globulin Ratio 0.6 (0.9-2); Alkaline Phosphatase 204 U/L (45-117); Bilirubin,Total 0.3 mg/dl (0.2-1); Globulin 4.1 gm/dl (2.5-4.0); Total Protein 6.5 gm/dl (6.4-8.2); Troponin I < 0.015 ng/ml (0-0.045)
--- NOTE | 2018-04-05 15:11 | XRay Report ---
XR chest 1V portable HISTORY: Generalized abdominal pain. COMPARISON: Chest 03/21/2018. FINDINGS: There are poststernotomy changes. Left Port-A-Cath terminates at the SVC. The lungs are jess ar. No pleural effusions. No pneumothorax. Slight prominence of the perihilar interstitial markings r emains unchanged. IMPRESSION: No significant change compared to the prior study. No acute process. Electronically signed by: Kamar Barragan M.D. 04/05/2018 3:09 PM
[2018-04-05] MEDS ORDERED: ACETAMINOPHEN 1,000 MG/100 ML VIAL IV ONE (15:15)
[2018-04-05] MEDS ORDERED: SODIUM CHLORIDE 0.9% 1000ML 1,000 ML IV ONE (15:15)
[2018-04-05] MEDS ORDERED: OPTIRAY 320 125ml IV PRN (15:57)
--- NOTE | 2018-04-05 16:11 | CT Scan Report ---
CT angio chest PE protocol CT DOSE: 772.30 mGy.cm HISTORY: 77 years-old Male with PE. Acute shortness of breath TECHNIQUE: Multiple CTA images of the chest were obtained after the intravenous administration of 119 ml Optiray 320. Coronal and sagittal MIPS were obtained from the axial data set and were submitted for review. All measurements were obtained according to NASCET criteria. A dose lowering technique w as utilized adhering to the principles of ALARA. COMPARISON: CT abdomen and pelvis of same day, chest radiograph of same day. FINDINGS: Motion degraded exam. CTA: Heart is normal in size. Prior median sternotomy. Coronary arterial calcifications are noted. 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 Moderate mixed plaque relation about the thoracic aortic arch without aneurysm or dissection. The pulmonary arterial tree is opacified to level of the subsegmental branch es. The segmental and subsegmental branches however are not well-seen secondary to respiratory motion . No focal filling defects identified to suggest pulmonary thromboembolic disease. CT CHEST: No dominant thyroid nodule. Mildly prominent paratracheal lymph nodes measure up to 9 mm. Indetermina te 1.7 x 1.0 cm subcarinal lymph node. Trace left pleural effusion. No pneumothorax. Respiratory motion artifact limits evaluation of the doreen ng parenchyma. Groundglass, subsegmental nodular and consolidative opacities involves the basal lower lobes, left greater than right. These findings are most prominent dependently. Mild degree of trache obronchial secretions are noted with bibasilar bronchial wall thickening. No overt pulmonary edema. Biliary stent noted with pneumobilia suggesting patency. Soft tissues appear unremarkable. Bones appe ar to be intact. Partially imaged fusion hardware about the cervical spine. Subcortical cystic change s about the left humerus. Degenerative changes of the shoulders and spine. Multilevel spondylitic spu rring of the spine. IMPRESSION: 1. Motion degraded exam. 2. No acute aortic pathology or evidence of pulmonary thromboembolic disease. 3. Trace left pleural effusion. 4. Bibasilar bronchial wall thickening suggestive of bronchitis with tracheobronchial secretions. Dep endent groundglass, subsegmental nodular and consolidative opacities of the basal lower lobes, left g reater than right suggests associated pneumonitis. 5. Mild mediastinal adenopathy, likely reactive. The above report was generated using voice recognition software. It may contain grammatical, syntax o r spelling errors. Electronically signed by: Ever Rodriguez M.D. 04/05/2018 4:09 PM
--- NOTE | 2018-04-05 16:11 | CT Scan Report ---
CT abd pelvis IV con only CLINICAL HISTORY: 77 years-old Male presenting with abd pain, pancreatic cancer. TECHNIQUE: Multidetector CT of the abdomen and pelvis was performed after the administration of intra venous contrast. IV contrast: 119 mL of Optiray 320. One or more dose lowering techniques were used c onsistent with the principles of ALARA (as low as reasonably achievable), including automatic exposur e control, mA or kV adjustment to individual patient size, and/or use of iterative reconstruction. COMPARISON: 12/29/2017. CT DOSE (mGy.cm): The estimated cumulative dose is 772.30. FINDINGS: Sternman topogram: Median sternotomy wires and mediastinal surgical clips. A common bile duct stent is n ow in place. Left internal jugular Mediport terminates in the SVC. Lung bases: Bibasilar dependent nodular consolidation and bronchial wall thickening with subsegmental bronchial debris. Normal heart size. Aortic valve calcification. No pericardial or pleural effusion. Liver: Normal morphology. No liver lesion. Patent hepatic vasculature. Biliary: Pneumobilia new from prior and related to the presence of a metallic common bile duct stent, which is now in place. Slight interval decrease in the degree of intrahepatic and hepatic biliary du ctal dilatation. Biliary ductal wall thickening and enhancement. Significant gallbladder wall thicken ing with mild gallbladder wall distention and suggestion of tension at the fundus (series 6 image 163 ). Pancreas: Redemonstration of the vague pancreatic head mass (series 6 image 126). This is not changed in size since prior exam. Upstream pancreatic ductal dilatation and pancreatic parenchymal atrophy. Spleen: Normal. Adrenal glands: Normal. Kidneys and ureters: Few well-defined hypodensities, the larger in the left kidney, consistent with s imple cysts. Slight cortical atrophy at the lower pole anteriorly in the left kidney may also suggest reflux nephropathy or prior infarct. No nephrolithiasis or nephrosis. Ureters nondistended. Bladder: Circumferential bladder wall thickening. Pelvic organs: Prostate enlargement likely secondary to benign prostatic hyperplasia. Bowel: Appendix not well visualized. No bowel obstruction. Peritoneal cavity: No free fluid or intraperitoneal gas. Lymph nodes: Several prominent though subcentimeter lymph nodes noted in the portacaval, peripancreat ic regions, and aortocaval regions. These are nonspecific. Vasculature: Atherosclerosis of the abdominal aorta with an infrarenal abdominal aortic aneurysm rafael uring up to 3.6 x 3.6 cm in maximal axial dimensions. IVC patent. No gross evidence of superior mesen teric artery involvement. However, the portal vein is mildly narrowed as it traverses the posterior a spect of the mass (series 6 image 114). The portal vein remains patent. Abdominal wall: Mild body wall edema. Cachexia. Musculoskeletal: Degenerative changes of the spine. IMPRESSION: 1. Findings highly suspicious for acute cholecystitis. Nuclear medicine HIDA scan could be obtained to confirm this. Surgical consultation advised. 2. Interval placement of a metallic common bile duct stent for the pancreatic head malignancy. Expec shekhar pneumobilia. Biliary ductal wall thickening and enhancements could potentially be expected findin gs in the setting of the stent versus indicative of ascending cholangitis. Correlate clinically. 3. Unchanged size of the ectatic head mass. 4. Significant chronic bladder outlet obstruction secondary to prostatomegaly. 5. 3.6 cm abdominal aortic aneurysm. Electronically signed by: Jose Angel Martinez M.D. 04/05/2018 4:10 PM
[2018-04-05 16:53] LABS: Influenza A virus by PCR Neg for Influ A (Neg); Influenza B virus by PCR Neg for Influ B (Neg)
[2018-04-05 17:33] LABS: Appearance Urine Clear (Clear); Bacteria Urine Automated Negative (Negative); Bilirubin Urine Negative (Negative); Color Urine Yellow; Epithelial Cell Urine Auto 20-30 /lpf (0-5); Glucose Urine UA Negative (Negative); Ketones Urine Negative (Negative); Leukocyte Esterase Urine Negative (Negative); Nitrite Urine Negative (Negative); Specific Gravity Urine > 1.045 (1.000-1.030); Urobilinogen Urine Negative (Negative); pH Urine 7.5 (4.5-7.5)
[2018-04-05 17:42] LABS: Protein Urine Negative (Negative)
[2018-04-05] MEDS ORDERED: PIPERACILLIN/TAZOBACTAM 4.5 GM/120 ML BAG IV ONE (19:15)
[2018-04-05] MEDS ORDERED: SODIUM CHLORIDE 0.9% 1000ML 1,000 ML IV SCH (19:30)
[2018-04-05] MEDS ORDERED: VANCOMYCIN HCL 1,250 MG in SODIUM CHLORIDE 0.9% 500 ML IV ONE (20:44)
[2018-04-05] MEDS ORDERED: VANCOMYCIN CONSULT ACTIVE PRN (20:44)
--- NOTE | 2018-04-05 20:59 | Emergency Department Note ---
Entered by Alice Howard acting as a scribe for Ramirez Recinos MD History of Present Illness General Chief complaint: Abdominal Pain Stated complaint: STOMACH PAIN, PANCREATIC CANCER, ON CHEMO Time Seen by Provider: 04/05/18 13:37 Source: patient and family () Limitations: no limitations History of Present Illness Provider complaint: abdominal pain Onset (ago): hour(s) 3 Location: abdomen Maximum Pain Intensity: 6 Associated symptoms: + denies other symptoms (diarrhea ) and + cough; no fever/ chills and no nausea/vomiting The patient is a 77 year old male who presents to the Emergency Room with complaints of abdominal pain that began 3 hours prior to arrival. The patient states that he has a cough but denies being febrile, nausea, vomiting, or diarrhea. The patient states that his last bowel movement was this morning and states that it was normal. The patient denies bringing up sputum. The patient states he has a history of pancreatic cancer. The patient states that his last chemotherapy treatment was 2 weeks ago and states that his next treatment s in 2 days. The patient states he usually receives chemotherapy every but states that something in his blood was too low last week so he states he didn't get treatment. The patient states that he takes aspirin daily. Home Medications Home Medications Medication Instructions Recorded Confirmed Type aspirin [Aspir-81] 81 mg PO QAM 12/29/17 04/05/18 History atorvastatin [Lipitor] 80 mg PO HS 12/29/17 04/05/18 History budesonide-formoterol [Symbicort] 2 puff INHALATION BID 12/29/17 04/05/18 History donepezil [Aricept] 10 mg PO HS 12/29/17 04/05/18 History ipratropium-albuterol [Combivent 1 puff INHALATION QID PRN 12/29/17 04/05/18 History Respimat] memantine [Namenda XR] 21 mg PO QAM 12/29/17 04/05/18 History midodrine 5 mg PO TID 12/29/17 04/05/18 History nitroglycerin [Nitrostat] 0.4 mg SUBLINGUAL DIRECTED PRN 12/29/17 04/05/18 History duloxetine 30 mg PO QAM 02/02/18 04/05/18 History finasteride 5 mg PO QAM 02/02/18 04/05/18 History ondansetron HCl 8 mg PO TID 02/02/18 04/05/18 History fenofibrate micronized 134 mg PO QAM 02/21/18 04/05/18 History insulin aspart U-100 [Novolog 1 dose SUBCUT DIRECTED 02/21/18 04/05/18 History Flexpen U-100 Insulin] [id number] [Creon] 1 cap PO AC 02/21/18 04/05/18 History omeprazole 40 mg PO QAM 02/21/18 04/05/18 History food supplemt, lactose-reduced 1 ea PO TIDM 03/21/18 04/05/18 History [Nutritional Shake] insulin glargine [Lantus Solostar 20 unit SUBCUT HS #0 ml 03/29/18 04/05/18 Rx U-100 Insulin] insulin glulisine U-100 [Apidra 8 units SUBCUT WM 04/05/18 04/05/18 History SoloStar U-100 Insulin] metoprolol tartrate 25 mg PO BID 04/05/18 04/05/18 History ropinirole [Requip] 1 mg PO HS 04/05/18 04/05/18 History Allergies Allergy/AdvReac Type Severity Reaction Status Date / Time benzonatate Allergy Unknown ITCH Verified 04/05/18 15:26 shrimp Allergy Unknown RASH Verified 04/05/18 15:26 pramipexole AdvReac Unknown bp issues Verified 04/05/18 15:26 as per Past Med/Surg History Medical History Cholecystitis (Acute) Carotid artery occlusion with cerebral infarction per records from [facility] Pancreatic cancer Sleep apnea does not use any device Hx of myocardial infarction 2006 x2; Hx of agent [place] exposure Hearing deficit Seasonal allergies Pancreatic mass (Acute) Parkinson disease walking is affected - walks slow and shuffles feet; tremors are med controlled Restless leg CAD (coronary artery disease) HLD (hyperlipidemia) Diabetes Alzheimer disease (Chronic) COPD (chronic obstructive pulmonary disease) (Chronic) CKD (chronic kidney disease) (Chronic) stage III Surgical History Hx of cervical spine surgery [facility] 2017 Hx of cardiac cath 2007 - [facility] Hx of heart bypass surgery 2007 - x3 vessels - [facility] Hx of cataract extraction bilateral eyes Hx of appendectomy Hx of removal of cyst testicular; right axilla Hx of hand surgery drained and cleaned d/t cat bite Hx of tooth extraction Family History Other Cancer Social History Current Living Situation: Spouse Feels Safe at Home: Yes Smoking Status: Current every day smoker Tobacco Type: cigarettes Cigarettes per Day: 2 Second Hand Exposure: Yes Hx Alcohol Use: No Hx Substance Use: No Beliefs That Will Affect Care: None Preferred Language: Bahamian Review of Systems See HPI for pertinent positives & negatives. and A total of 10 systems reviewed and were otherwise negative Physical Exam Vital Signs Vital Signs - 24 hr 04/05/18 13:25 04/05/18 13:55 04/05/18 15:00 Temperature 36.3 C L Temperature Source Oral Sepsis Recent Fever Within 48 Hours No Sepsis New/Unexplained Change in Mental Status No Sepsis Action Taken by Nursing No Action Required Pulse Rate 82 Pulse Rate [Left] 80 Respiratory Rate 18 24 Respiratory Effort / Characteristics Non-Labored Spontaneous Respiratory Depth Normal Respiratory Pattern Regular Blood Pressure 94/60 L Blood Pressure [Right Arm] 97/66 L Blood Pressure Mean 71 Blood Pressure Mean [Right Arm] 76 Blood Pressure Position [Right Arm] Pulse Oximetry 96 96 96 Oxygen Delivery Method Room Air Room Air Room Air 04/05/18 16:13 04/05/18 18:34 04/05/18 19:57 Temperature Temperature Source Sepsis Recent Fever Within 48 Hours Sepsis New/Unexplained Change in Mental Status Sepsis Action Taken by Nursing Pulse Rate Pulse Rate [Left] 82 83 79 Respiratory Rate 18 20 18 Respiratory Effort / Characteristics Spontaneous Non-Labored Spontaneous Spontaneous Respiratory Depth Respiratory Pattern Blood Pressure Blood Pressure [Right Arm] 120/80 134/77 130/75 Blood Pressure Mean Blood Pressure Mean [Right Arm] 93 96 93 Blood Pressure Position [Right Arm] Lying Lying Lying Pulse Oximetry 94 96 95 Oxygen Delivery Method Room Air Room Air Room Air 04/05/18 22:25 04/05/18 23:58 Temperature Temperature Source Sepsis Recent Fever Within 48 Hours Sepsis New/Unexplained Change in Mental Status Sepsis Action Taken by Nursing Pulse Rate Pulse Rate [Left] 83 80 Respiratory Rate 20 20 Respiratory Effort / Characteristics Non-Labored Spontaneous Non-Labored Spontaneous Respiratory Depth Normal Normal Respiratory Pattern Blood Pressure Blood Pressure [Right Arm] 130/75 130/75 Blood Pressure Mean Blood Pressure Mean [Right Arm] 93 93 Blood Pressure Position [Right Arm] Pulse Oximetry 97 97 Oxygen Delivery Method Room Air Room Air GENERAL: Awake, alert, chronically ill/cachectic appearing, in no distress HENT: Normocephalic, atraumatic. Oropharynx with dry mucous membranes and otherwise unremarkable. EYES: Normal conjunctiva. Sclera non-icteric. NECK: Supple. No nuchal rigidity. FROM. No JVD. RESPIRATORY: Diminished breath sounds at bases and otherwise clear. CARDIAC: Regular rate, normal rhythm. Extremities warm and well perfused. Pulses equal. ABDOMEN: Soft, non-distended. Mild epigastric ttp with generalized abdominal discomfort. No rebound or guarding. No masses. RECTAL: Deferred. MUSCULOSKELETAL: Chest examination reveals no tenderness. The back is symmetrical on inspection without obvious abnormality. There is no CVA tenderness to palpation. No joint edema. LOWER EXTREMITIES: Calves are equal size bilaterally and non-tender. No edema. No discoloration. NEURO: Normal sensorium. No sensory or motor deficits noted. Pleasantly confused. SKIN: No rash or jaundice noted. Course 1334: Past medical records reviewed. The patient was evaluated in room C2B, and a complete history and physical examination were performed. 1600: I checked on and updated the patient on his results. 1740: I discussed the patient's case with Dr. Burk- General Surgeon for [facility] who states that the patient's case is too complicated and that the patient needs to be transferred to [facility]. 1800: There are currently no beds available at [facility], so we are going to see if there is an available bed for the patient at [facility] in [place]. 2020: Dr. Burk agreed to be on consultation to admit the patient here and then transfer the patient to [place] if needed. 2039: I discussed the patient's case with Dr. Abrams -Internal Medicine for [facility] who will evaluate the patient for further hospitalization. Consultations Consultation #1: Dr. Burk- General Surgeon for [facility] Time: 17:56 Consultation #2: Dr. Burk- General Surgeon for [facility] Time: 20:20 Consultation #3: Dr. Abrams -Internal Medicine for [facility] Time: 20:40 Administered Medications Sodium Chloride (Nss 1000ml) 1,000 mls @ 125 mls/hr IV .Q8H RENEE Stop: 05/05/18 19:29 Last Admin: 04/05/18 19:25 Dose: 125 mls/hr Ioversol (Optiray 320 125ml) 119 ml IV ONCE PRN PRN Reason: Interaction Checking Stop: 04/09/18 15:56 Last Admin: 04/05/18 15:57 Dose: 119 ml Discontinued Medications Sodium Chloride (Nss 1000ml) 1,000 mls @ 999 mls/hr IV .Q1H1M ONE Stop: 04/05/18 16:15 Last Infusion: 04/05/18 17:09 Dose: 0 mls/hr Admin: 04/05/18 16:07 Dose: 999 mls/hr Acetaminophen (Ofirmev) 1,000 mg in 100 mls @ 400 mls/hr IV NOW ONE Stop: 04/05/18 15:29 Last Infusion: 04/05/18 16:36 Dose: 0 mls/hr Admin: 04/05/18 16:07 Dose: 400 mls/hr Piperacillin Sod/Tazobactam Sod (Zosyn) 4.5 gm in 120 mls @ 30 mls/hr IV NOW ONE Stop: 04/05/18 23:14 Last Admin: 04/05/18 19:24 Dose: 30 mls/hr Medical Decision Making Differential Diagnosis Differential diagnosis: Etiologies such as appendicitis, diverticulitis, PUD, biliary pathology, UTI, pancreatitis, obstruction, mesenteric ischemia, aortic pathology, infections, inflammatory bowel disease, renal colic, as well as others were entertained. Medical Records Attestation: I reviewed the patient's medical records. Home Medications Current Medication List: was personally reviewed by me Laboratory Data Attestation: I reviewed the patient's lab results. Result diagrams: 04/05/18 14:05 04/05/18 14:05 Lab Results 04/05/18 04/05/18 04/05/18 Range/Units 14:05 14:05 14:05 WBC 14.41 H (4.8-10.8) K/uL RBC 3.51 L (4.7-6.1) M/uL Hgb 10.2 L (14.0-18.0) g/dL Hct 32.4 L (42-52) % MCV 92.3 (80-100) fL MCH 29.1 (25-34) pg MCHC 31.5 L (32-36) g/dL RDW Std Deviation 56.9 H (36.4-46.3) fL RDW Coeff of Erwin 17.5 H (11.5-14.5) % Plt Count 450 H (130-400) K/uL MPV 9.3 (7.4-10.4) fL Immature Gran % (Auto) 1.4 % Neut % (Auto) 63.6 % Lymph % (Auto) 18.1 % [place]yer % (Auto) 12.8 % Eos % (Auto) 3.4 % Baso % (Auto) 0.7 % Immature Gran # (Auto) 0.20 H (0.00-0.02) K/uL Neut # (Auto) 9.17 H (1.4-6.5) K/uL Lymph # (Auto) 2.61 (1.2-3.4) K/uL Sawyer # (Auto) 1.84 H (0.11-0.59) K/uL Eos # (Auto) 0.49 (0-0.5) K/uL Baso # (Auto) 0.10 (0-0.2) K/uL PT 11.1 (9.0-12.0) Seconds INR 1.1 (0.9-1.1) Sodium 136 (136-145) mmol/L Potassium 4.5 (3.5-5.1) mmol/L Chloride 103 (98-107) mmol/L Carbon Dioxide 28 (21-32) mmol/L Anion Gap 5.0 (3-11) BUN 22 H (7-18) mg/dl Creatinine 1.01 (0.6-1.4) mg/dl Est Cr Clr Drug Dosing 58.5 ml/min Est GFR ( Amer) 83.9 Est GFR (Non-Af Amer) 72.4 BUN/Creatinine Ratio 21.5 H (10-20) Glucose 189 H (70-99) mg/dl POC Glucose (70-99) Calcium 8.8 (8.5-10.1) mg/dl Magnesium 1.9 (1.8-2.4) mg/dl Total Bilirubin 0.3 (0.2-1) mg/dl AST 57 H (15-37) U/L ALT 36 (12-78) U/L Alkaline Phosphatase 204 H (45-117) U/L Troponin I < 0.015 (0-0.045) ng/ml Total Protein 6.5 (6.4-8.2) gm/dl Albumin 2.4 L (3.4-5.0) gm/dl Globulin 4.1 H (2.5-4.0) gm/dl Albumin/Globulin Ratio 0.6 L (0.9-2) Lipase 38 L (73-393) U/L Urine Color Urine Appearance (Clear) Urine pH (4.5-7.5) Ur Specific [place] (1.000-1.030) Urine Protein (Negative) Urine Glucose (UA) (Negative) Urine Ketones (Negative) Urine Blood (Negative) Urine Nitrite (Negative) Urine Bilirubin (Negative) Urine Urobilinogen (Negative) Ur Leukocyte Esterase (Negative) Urine WBC (Auto) (0-5) /hpf Urine RBC (Auto) (0-4) /hpf U Hyaline Cast (Auto) (0-5) /lpf U Epithel Cells (Auto) (0-5) /lpf Urine Bacteria (Auto) (Negative) Influenza Type A (PCR) (Neg) Influenza Type B (PCR) (Neg) 04/05/18 04/05/18 04/05/18 Range/Units 16:10 17:12 19:22 WBC (4.8-10.8) K/uL RBC (4.7-6.1) M/uL Hgb (14.0-18.0) g/dL Hct (42-52) % MCV (80-100) fL MCH (25-34) pg MCHC (32-36) g/dL RDW Std Deviation (36.4-46.3) fL RDW Coeff of [place] (11.5-14.5) % Plt Count (130-400) K/uL MPV (7.4-10.4) fL Immature Gran % (Auto) % Neut % (Auto) % Lymph % (Auto) % [place]yer % (Auto) % Eos % (Auto) % Baso % (Auto) % Immature Gran # (Auto) (0.00-0.02) K/uL Neut # (Auto) (1.4-6.5) K/uL Lymph # (Auto) (1.2-3.4) K/uL [place] # (Auto) (0.11-0.59) K/uL Eos # (Auto) (0-0.5) K/uL Baso # (Auto) (0-0.2) K/uL PT (9.0-12.0) Seconds INR (0.9-1.1) Sodium (136-145) mmol/L Potassium (3.5-5.1) mmol/L Chloride (98-107) mmol/L Carbon Dioxide (21-32) mmol/L Anion Gap (3-11) BUN (7-18) mg/dl Creatinine (0.6-1.4) mg/dl Est Cr Clr Drug Dosing ml/min Est GFR ( Amer) Est GFR (Non-Af Amer) BUN/Creatinine Ratio (10-20) Glucose (70-99) mg/dl POC Glucose 129 H (70-99) Calcium (8.5-10.1) mg/dl Magnesium (1.8-2.4) mg/dl Total Bilirubin (0.2-1) mg/dl AST (15-37) U/L ALT (12-78) U/L Alkaline Phosphatase (45-117) U/L Troponin I (0-0.045) ng/ml Total Protein (6.4-8.2) gm/dl Albumin (3.4-5.0) gm/dl Globulin (2.5-4.0) gm/dl Albumin/Globulin Ratio (0.9-2) Lipase (73-393) U/L Urine Color Yellow Urine Appearance Clear (Clear) Urine pH 7.5 (4.5-7.5) Ur Specific [place] > 1.045 H (1.000-1.030) Urine Protein Negative (Negative) Urine Glucose (UA) Negative (Negative) Urine Ketones Negative (Negative) Urine Blood Negative (Negative) Urine Nitrite Negative (Negative) Urine Bilirubin Negative (Negative) Urine Urobilinogen Negative (Negative) Ur Leukocyte Esterase Negative (Negative) Urine WBC (Auto) 1-5 (0-5) /hpf Urine RBC (Auto) 0-4 (0-4) /hpf U Hyaline Cast (Auto) 1-5 (0-5) /lpf U Epithel Cells (Auto) 20-30 H (0-5) /lpf Urine Bacteria (Auto) Negative (Negative) Influenza Type A (PCR) Neg for Influ A (Neg) Influenza Type B (PCR) Neg for Influ B (Neg) Imaging Data Radiologist's Impression: Radiology results as stated below per my review and the radiologist's interpretation: XR chest 1V portable HISTORY: Generalized abdominal pain. COMPARISON: Chest 03/21/2018. FINDINGS: There are poststernotomy changes. Left Port-A-Cath terminates at the SVC. The lungs are clear. No pleural effusions. No pneumothorax. Slight prominence of the perihilar interstitial markings remains unchanged. IMPRESSION: No significant change compared to the prior study. No acute process. Electronically signed by: Kamar Barragan M.D. 04/05/2018 3:[address] abd pelvis IV con only CLINICAL HISTORY: 77 years-old Male presenting with abd pain, pancreatic cancer. TECHNIQUE: Multidetector CT of the abdomen and pelvis was performed after the administration of intravenous contrast. IV contrast: 119 mL of Optiray 320. One or more dose lowering techniques were used consistent with the principles of ALARA (as low as reasonably achievable), including automatic exposure control, mA or kV adjustment to individual patient size, and/or use of iterative reconstruction. COMPARISON: 12/29/2017. CT DOSE (mGy.cm): The estimated cumulative dose is 772.30. FINDINGS: [employer] Operator topogram: Median sternotomy wires and mediastinal surgical clips. A common bile duct stent is now in place. Left internal jugular Mediport terminates in the SVC. Lung bases: Bibasilar dependent nodular consolidation and bronchial wall thickening with subsegmental bronchial debris. Normal heart size. Aortic valve calcification. No pericardial or pleural effusion. Liver: Normal morphology. No liver lesion. Patent hepatic vasculature. Biliary: Pneumobilia new from prior and related to the presence of a metallic common bile duct stent, which is now in place. Slight interval decrease in the degree of intrahepatic and hepatic biliary ductal dilatation. Biliary ductal wall thickening and enhancement. Significant gallbladder wall thickening with mild gallbladder wall distention and suggestion of tension at the fundus ( series 6 image 163). Pancreas: Redemonstration of the vague pancreatic head mass (series 6 image 126) . This is not changed in size since prior exam. Upstream pancreatic ductal dilatation and pancreatic parenchymal atrophy. Spleen: Normal. Adrenal glands: Normal. Kidneys and ureters: Few well-defined hypodensities, the larger in the left kidney, consistent with simple cysts. Slight cortical atrophy at the lower pole anteriorly in the left kidney may also suggest reflux nephropathy or prior infarct. No nephrolithiasis or nephrosis. Ureters nondistended. Bladder: Circumferential bladder wall thickening. Pelvic organs: Prostate enlargement likely secondary to benign prostatic hyperplasia. Bowel: Appendix not well visualized. No bowel obstruction. Peritoneal cavity: No free fluid or intraperitoneal gas. Lymph nodes: Several prominent though subcentimeter lymph nodes noted in the portacaval, peripancreatic regions, and aortocaval regions. These are nonspecific. Vasculature: Atherosclerosis of the abdominal aorta with an infrarenal abdominal aortic aneurysm measuring up to 3.6 x 3.6 cm in maximal axial dimensions. IVC patent. No gross evidence of superior mesenteric artery involvement. However, the portal vein is mildly narrowed as it traverses the posterior aspect of the mass (series 6 image 114). The portal vein remains patent. Abdominal wall: Mild body wall edema. Cachexia. Musculoskeletal: Degenerative changes of the spine. IMPRESSION: 1. Findings highly suspicious for acute cholecystitis. Nuclear medicine HIDA scan could be obtained to confirm this. Surgical consultation advised. 2. Interval placement of a metallic common bile duct stent for the pancreatic head malignancy. Expected pneumobilia. Biliary ductal wall thickening and enhancements could potentially be expected findings in the setting of the stent versus indicative of ascending cholangitis. Correlate clinically. 3. Unchanged size of the ectatic head mass. 4. Significant chronic bladder outlet obstruction secondary to prostatomegaly. 5. 3.6 cm abdominal aortic aneurysm. Electronically signed by: Jose Angel Martinez M.D. 04/05/2018 4:[address] angio chest PE protocol CT DOSE: 772.30 mGy.cm HISTORY: 77 years-old Male with PE. Acute shortness of breath TECHNIQUE: Multiple CTA images of the chest were obtained after the intravenous administration of 119 ml Optiray 320. Coronal and sagittal MIPS were obtained from the axial data set and were submitted for review. All measurements were obtained according to NASCET criteria. A dose lowering technique was utilized adhering to the principles of ALARA. COMPARISON: CT abdomen and pelvis of same day, chest radiograph of same day. FINDINGS: Motion degraded exam. CTA: Heart is normal in size. Prior median sternotomy. Coronary arterial calcifications are noted. Postoperative changes from prior CABG. Moderate mixed plaque relation about the thoracic aortic arch without aneurysm or dissection. The pulmonary arterial tree is opacified to level of the subsegmental branches. The segmental and subsegmental branches however are not well-seen secondary to respiratory motion. No focal filling defects identified to suggest pulmonary thromboembolic disease. CT CHEST: No dominant thyroid nodule. Mildly prominent paratracheal lymph nodes measure up to 9 mm. Indeterminate 1.7 x 1.0 cm subcarinal lymph node. Trace left pleural effusion. No pneumothorax. Respiratory motion artifact limits evaluation of the lung parenchyma. Groundglass, subsegmental nodular and consolidative opacities involves the basal lower lobes, left greater than right. These findings are most prominent dependently. Mild degree of tracheobronchial secretions are noted with bibasilar bronchial wall thickening. No overt pulmonary edema. Biliary stent noted with pneumobilia suggesting patency. Soft tissues appear unremarkable. Bones appear to be intact. Partially imaged fusion hardware about the cervical spine. Subcortical cystic changes about the left humerus. Degenerative changes of the shoulders and spine. Multilevel spondylitic spurring of the spine. IMPRESSION: 1. Motion degraded exam. 2. No acute aortic pathology or evidence of pulmonary thromboembolic disease. 3. Trace left pleural effusion. 4. Bibasilar bronchial wall thickening suggestive of bronchitis with tracheobronchial secretions. Dependent groundglass, subsegmental nodular and consolidative opacities of the basal lower lobes, left greater than right suggests associated pneumonitis. 5. Mild mediastinal adenopathy, likely reactive. The above report was generated using voice recognition software. It may contain grammatical, syntax or spelling errors. Electronically signed by: Ever Rodriguez M.D. 04/05/2018 4:09 PM ECG Data Attestation: I personally reviewed and interpreted this ECG as follows: Indication: abdominal pain Rate (beats per minute): 82 Rhythm: normal sinus Findings: + LAFB; no acute ischemic change Comparison ECG Date: from () Change: no significant change Blood Pressure Blood Pressure Findings: Normal blood pressure MDM Narrative The patient is a pleasant 77-year-old gentleman with a complicated past medical history of pancreatic cancer with pancreatic head mass with associated pancreatic duct and biliary duct dilatation status post pancreatic stent at [facility], CAD s/p CABG, CVA, CKD, COPD, Parkinson disease, dementia who now presents emergency department with acute onset abdominal pain with shortness of breath per hpi. On arrival the patient is chronically ill- appearing but in no acute distress, AFVSS. Patient appears clinically dry. On exam the patient has mild epigastric tenderness. No peritoneal signs. EKG similar to prior without acute ischemia. WBC 14 which is decreased from previous values in the setting of his chemotherapy. Troponin negative. Chemistry without evidence of acidosis. Total bilirubin within normal limits. AST marginally elevated at 57. ALT within normal limits. Alk phos 204. Lipase 38. UA negative for infection. Flu negative. Chest x-ray without acute process. CT chest negative for PE however with nonspecific basilar groundglass opacities suspicious for pneumonitis. CT the abdomen pelvis demonstrates findings suspicious for cholecystitis with significant gallbladder wall thickening with mild gallbladder wall distention and suggestion of tension at the fundus. Otherwise shows pneumobilia biliary ductal dilatation likely expected in the setting of the patient's recent stent placement 2 weeks ago. Case discussed with Dr. Burk, general surgery who initially recommended transfer to tertiary care center given the patient's complexity in the setting of his pancreatic cancer. [facility] contacted and case was discussed with Dr. Morton, Surg-oncology, who is familiar with the patient and agrees that patient should be transferred to [facility] where he has been managed previously as well as for higher level of care as he would likely need a percutaneous Leah tube as opposed to surgery at this time. However, [facility] is currently on critical capacity without available beds and transfer is not possible at this time. However, he recommends broad-spectrum IV antibiotics for now (including vancomycin if risk factors for MRSA) and recommends admission to hospital medicine with the understanding that if the patient starts to show evidence of a worsening condition that he be transferred emergently to [facility]. He will be available to consultation for our inpatient hospital team as needed and will additionally contact the team tomorrow to reassess his condition. I did review this plan with Dr. Burk, [facility] surgery, who says he will be available for inpatient consultation however again agrees that the patient's surgical treatment should be at [facility] due to his complexity and agrees with emergent transfer if patient worsens. Case d/w Dr. Abrams, [facility] hospitalist, and Dr. Escalera [facility] admitting resident, who will evaluate the patient for admission. Impression & Plan Cholecystitis Discharge Plan Visit Data Chief Complaint: Abdominal Pain Stated Complaint: STOMACH PAIN, PANCREATIC CANCER, ON CHEMO ED Provider: Ramirez Recinos Discharge Problem: Cholecystitis Discharge Instructions Interventions: ED Discharge Assessment Last Done: 04/05/18 22:56 Prescriptions Prescriptions: No Action omeprazole 40 mg Capsule,Delayed Release(Dr/Ec) 40 mg PO QAM RF: 0 fenofibrate micronized 134 mg Capsule 134 mg PO QAM RF: 0 insulin aspart U-100 [Novolog Flexpen U-100 Insulin] 100 unit/mL Insulin Pen 1 dose SUBCUT DIRECTED RF: 0 [id number] [Creon] 12,000-38,000 -60,000 unit Capsule,Delayed Release(Dr/Ec) 1 cap PO AC RF: 0 atorvastatin [Lipitor] 80 mg tablet 80 mg PO HS RF: 0 donepezil [Aricept] 10 mg tablet 10 mg PO HS RF: 0 aspirin [Aspir-81] 81 mg Tablet,Delayed Release (Dr/Ec) 81 mg PO QAM RF: 0 budesonide-formoterol [Symbicort] 80-4.5 mcg/actuation HFA aerosol inhaler 2 puff Inhalation BID RF: 0 midodrine 5 mg tablet 5 mg PO TID RF: 0 nitroglycerin [Nitrostat] 0.4 mg Tablet, Sublingual 0.4 mg Sublingual DIRECTED PRN (Reason: Chest Pain) RF: 0 memantine [Namenda XR] 21 mg capsule,sprinkle,ER 24hr 21 mg PO QAM RF: 0 ipratropium-albuterol [Combivent Respimat] 20-100 mcg/actuation Mist 1 puff INHALATION QID PRN (Reason: COPD Exacerbation) RF: 0 ondansetron HCl 8 mg tablet 8 mg PO TID RF: 0 finasteride 5 mg Tablet 5 mg PO QAM RF: 0 duloxetine 30 mg capsule,delayed release(DR/EC) 30 mg PO QAM RF: 0 food supplemt, lactose-reduced [Nutritional Shake] Liquid 1 ea PO TIDM RF: 0 insulin glargine [Lantus Solostar U-100 Insulin] 100 unit/mL (3 mL) Insulin Pen 20 unit SUBCUT HS Qty: 0 RF: 0 ropinirole [Requip] 1 mg Tablet 1 mg PO HS RF: 0 insulin glulisine U-100 [Apidra SoloStar U-100 Insulin] 100 unit/mL insulin pen 8 units subcut WM RF: 0 metoprolol tartrate 25 mg tablet 25 mg PO BID RF: 0 The scribe's documentation has been prepared under my direction and personally reviewed by me in its entirety. I confirm that the note above accurately reflects all work, treatment, procedures, and medical decision making performed by me.
--- NOTE | 2018-04-05 21:41 | Surgery Consultation ---
Date of Consultation April 05, 2018 Assessment & Plan (1) Cholecystitis: pt is a 77 year old male who presents to ER with 10 hours epigastric pain , pt has been dx pancreatic cancer 12/2017, IMP: epigastric pain, pancreatic cancer, possible cholecystitis, cholangiotitis Plan, based on complicated history, recommend to transfer higher level care, but [facility] has no bed available now. pt will treat there with iv antibiotic control pain, iv fluid, prevent DVT,repat labs in am, pt should have interventional radiologist for percutaneous drainage bladder if pt is getting worse, D/W benefits, risks and alternatives of the treat pt in this hospital, pt and his daughter understood, they agree with the plan, Hospitalist will contact [facility] again for bed, History of Present Illness History of Present Illness Mr. Bermudez is an unfortunate 77yo male with history of pancreatic adenocarcinoma stage 1B (T2, N0, M0)Dx in December 2017 by EUS/FNA biopsy of the pancreatic head performed at [facility]). Last chemotherapy treatment reported two weeks ago. He is due for next treatment on 03/24/17. pt presents with 10 hours history epigastric pain, pt denies nausea, no vomiting , no diarrhea, no fever, pt had CT scan-IMPRESSION: 1. Findings highly suspicious for acute cholecystitis. Nuclear medicine HIDA scan could be obtained to confirm this. Surgical consultation advised. 2. Interval placement of a metallic common bile duct stent for the pancreatic head malignancy. Expected pneumobilia. Biliary ductal wall thickening and enhancements could potentially be expected findings in the setting of the stent versus indicative of ascending cholangitis. Correlate clinically. 3. Unchanged size of the ectatic head mass. 4. Significant chronic bladder outlet obstruction secondary to prostatomegaly. 5. 3.6 cm abdominal aortic aneurysm. Allergies Allergy/AdvReac Type Severity Reaction Status Date / Time benzonatate Allergy Unknown ITCH Verified 04/05/18 15:26 shrimp Allergy Unknown RASH Verified 04/05/18 15:26 pramipexole AdvReac Unknown bp issues Verified 04/05/18 15:26 as per Home Medications Home Medications Medication Instructions Recorded Confirmed Type aspirin [Aspir-81] 81 mg PO QAM 12/29/17 04/05/18 History atorvastatin [Lipitor] 80 mg PO HS 12/29/17 04/05/18 History budesonide-formoterol [Symbicort] 2 puff INHALATION BID 12/29/17 04/05/18 History donepezil [Aricept] 10 mg PO HS 12/29/17 04/05/18 History ipratropium-albuterol [Combivent 1 puff INHALATION QID PRN 12/29/17 04/05/18 History Respimat] memantine [Namenda XR] 21 mg PO QAM 12/29/17 04/05/18 History midodrine 5 mg PO TID 12/29/17 04/05/18 History nitroglycerin [Nitrostat] 0.4 mg SUBLINGUAL DIRECTED PRN 12/29/17 04/05/18 History duloxetine 30 mg PO QAM 02/02/18 04/05/18 History finasteride 5 mg PO QAM 02/02/18 04/05/18 History ondansetron HCl 8 mg PO TID 02/02/18 04/05/18 History fenofibrate micronized 134 mg PO QAM 02/21/18 04/05/18 History insulin aspart U-100 [Novolog 1 dose SUBCUT DIRECTED 02/21/18 04/05/18 History Flexpen U-100 Insulin] [id number] [Creon] 1 cap PO AC 02/21/18 04/05/18 History omeprazole 40 mg PO QAM 02/21/18 04/05/18 History food supplemt, lactose-reduced 1 ea PO TIDM 03/21/18 04/05/18 History [Nutritional Shake] insulin glargine [Lantus Solostar 20 unit SUBCUT HS #0 ml 03/29/18 04/05/18 Rx U-100 Insulin] insulin glulisine U-100 [Apidra 8 units SUBCUT WM 04/05/18 04/05/18 History SoloStar U-100 Insulin] metoprolol tartrate 25 mg PO BID 04/05/18 04/05/18 History ropinirole [Requip] 1 mg PO HS 04/05/18 04/05/18 History Patient History Medical History Carotid artery occlusion with cerebral infarction per records from [facility] Pancreatic cancer Sleep apnea does not use any device Hx of myocardial infarction 2006 x2; Hx of agent [place] exposure Hearing deficit Seasonal allergies Pancreatic mass (Acute) Parkinson disease walking is affected - walks slow and shuffles feet; tremors are med controlled Restless leg CAD (coronary artery disease) HLD (hyperlipidemia) Diabetes Alzheimer disease (Chronic) COPD (chronic obstructive pulmonary disease) (Chronic) CKD (chronic kidney disease) (Chronic) stage III Surgical History Hx of cervical spine surgery [facility] 2017 Hx of cardiac cath 2007 - [facility] Hx of heart bypass surgery 2007 - x3 vessels - [facility] Hx of cataract extraction bilateral eyes Hx of appendectomy Hx of removal of cyst testicular; right axilla Hx of hand surgery drained and cleaned d/t cat bite Hx of tooth extraction Family History Other Cancer Social History Current Living Situation: Spouse Feels Safe at Home: Yes Smoking Status: Current every day smoker Tobacco Type: cigarettes Cigarettes per Day: 2 Second Hand Exposure: Yes Hx Alcohol Use: No Hx Substance Use: No Beliefs That Will Affect Care: None Preferred Language: Tajik Review of Systems Constitutional: as per Subjective / HPI, + weakness and + weight loss Ear, Nose, Mouth, Throat: as per Subjective / HPI Respiratory: as per Subjective / HPI COPD Cardiovascular: as per Subjective / HPI Additional Comments: CAD, S/P CABG x2 in 2006 Gastrointestinal: as per Subjective / HPI pancreatic cancer, S/P ERCP, stent placement Genitourinary (Male): as per Subjective / HPI Musculoskeletal: as per Subjective / HPI pressure ulcer of sacral region, stage 3 Neurologic: as per Subjective / HPI Parkinson disease Psychiatric: as per Subjective / HPI DM anemia Physical Exam 2 Vital Signs (Past 24 Hours): Last Vital Signs Temp 36.3 C L 04/05/18 13:25 Pulse 79 04/05/18 19:57 Resp 18 04/05/18 19:57 BP 130/75 04/05/18 19:57 Pulse Ox 95 04/05/18 19:57 Constitutional: WD/WN, vitals as above + ill appearing and + thin Neck: trachea midline, no thyromegaly Respiratory: normal respiratory effort, lungs clear to auscultation Cardiovascular: RRR, no murmur, no edema middle line scar on chest wall, Gastrointestinal (Abdomen): normal bowel sounds, soft, nontender, no hepatosplenomegaly Percussion/Palpation: abdomen soft slightly tenderness at epigastric area, no rebound pain, no distend Neurologic: awake Psychiatric: Orientation: alert and oriented x 3 Results & Data Laboratory Results Abnormal lab results 04/05/18 04/05/18 04/05/18 Range/Units 14:05 14:05 17:12 WBC 14.41 H (4.8-10.8) K/uL RBC 3.51 L (4.7-6.1) M/uL Hgb 10.2 L (14.0-18.0) g/dL Hct 32.4 L (42-52) % MCHC 31.5 L (32-36) g/dL RDW Std Deviation 56.9 H (36.4-46.3) fL RDW Coeff of [place]win 17.5 H (11.5-14.5) % Plt Count 450 H (130-400) K/uL Immature Gran # (Auto) 0.20 H (0.00-0.02) K/uL Neut # (Auto) 9.17 H (1.4-6.5) K/uL Elk # (Auto) 1.84 H (0.11-0.59) K/uL BUN 22 H (7-18) mg/dl BUN/Creatinine Ratio 21.5 H (10-20) Glucose 189 H (70-99) mg/dl POC Glucose (70-99) AST 57 H (15-37) U/L Alkaline Phosphatase 204 H (45-117) U/L Albumin 2.4 L (3.4-5.0) gm/dl Globulin 4.1 H (2.5-4.0) gm/dl Albumin/Globulin Ratio 0.6 L (0.9-2) Lipase 38 L (73-393) U/L Ur Specific [place] > 1.045 H (1.000-1.030) U Epithel Cells (Auto) 20-30 H (0-5) /lpf 04/05/18 Range/Units 19:22 WBC (4.8-10.8) K/uL RBC (4.7-6.1) M/uL Hgb (14.0-18.0) g/dL Hct (42-52) % MCHC (32-36) g/dL RDW Std Deviation (36.4-46.3) fL RDW Coeff of Erwin (11.5-14.5) % Plt Count (130-400) K/uL Immature Gran # (Auto) (0.00-0.02) K/uL Neut # (Auto) (1.4-6.5) K/uL [place] # (Auto) (0.11-0.59) K/uL BUN (7-18) mg/dl BUN/Creatinine Ratio (10-20) Glucose (70-99) mg/dl POC Glucose 129 H (70-99) AST (15-37) U/L Alkaline Phosphatase (45-117) U/L Albumin (3.4-5.0) gm/dl Globulin (2.5-4.0) gm/dl Albumin/Globulin Ratio (0.9-2) Lipase (73-393) U/L Ur Specific [place] (1.000-1.030) U Epithel Cells (Auto) (0-5) /lpf Diagnostic Findings CT abd pelvis IV con only CLINICAL HISTORY: 77 years-old Male presenting with abd pain, pancreatic cancer. TECHNIQUE: Multidetector CT of the abdomen and pelvis was performed after the administration of intravenous contrast. IV contrast: 119 mL of Optiray 320. One or more dose lowering techniques were used consistent with the principles of ALARA (as low as reasonably achievable), including automatic exposure control, mA or kV adjustment to individual patient size, and/or use of iterative reconstruction. COMPARISON: 12/29/2017. CT DOSE (mGy.cm): The estimated cumulative dose is 772.30. 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 A common bile duct stent is now in place. Left internal jugular Mediport terminates in the SVC. Lung bases: Bibasilar dependent nodular consolidation and bronchial wall thickening with subsegmental bronchial debris. Normal heart size. Aortic valve calcification. No pericardial or pleural effusion. Liver: Normal morphology. No liver lesion. Patent hepatic vasculature. Biliary: Pneumobilia new from prior and related to the presence of a metallic common bile duct stent, which is now in place. Slight interval decrease in the degree of intrahepatic and hepatic biliary ductal dilatation. Biliary ductal wall thickening and enhancement. Significant gallbladder wall thickening with mild gallbladder wall distention and suggestion of tension at the fundus ( series 6 image 163). Pancreas: Redemonstration of the vague pancreatic head mass (series 6 image 126) . This is not changed in size since prior exam. Upstream pancreatic ductal dilatation and pancreatic parenchymal atrophy. Spleen: Normal. Adrenal glands: Normal. Kidneys and ureters: Few well-defined hypodensities, the larger in the left kidney, consistent with simple cysts. Slight cortical atrophy at the lower pole anteriorly in the left kidney may also suggest reflux nephropathy or prior infarct. No nephrolithiasis or nephrosis. Ureters nondistended. Bladder: Circumferential bladder wall thickening. Pelvic organs: Prostate enlargement likely secondary to benign prostatic hyperplasia. Bowel: Appendix not well visualized. No bowel obstruction. Peritoneal cavity: No free fluid or intraperitoneal gas. Lymph nodes: Several prominent though subcentimeter lymph nodes noted in the portacaval, peripancreatic regions, and aortocaval regions. These are nonspecific. Vasculature: Atherosclerosis of the abdominal aorta with an infrarenal abdominal aortic aneurysm measuring up to 3.6 x 3.6 cm in maximal axial dimensions. IVC patent. No gross evidence of superior mesenteric artery involvement. However, the portal vein is mildly narrowed as it traverses the posterior aspect of the mass (series 6 image 114). The portal vein remains patent. Abdominal wall: Mild body wall edema. Cachexia. Musculoskeletal: Degenerative changes of the spine.
--- NOTE | 2018-04-05 22:08 | History & Physical Report ---
Date of Service April 05, 2018 Assessment & Plan (1) Cholecystitis: Mr. Bermudez is an unfortunate 77yo male with history of pancreatic adenocarcinoma stage 1B (T2, N0, M0)Dx in December 2017 by EUS/FNA biopsy of the pancreatic head performed at [facility]). Plan for ongoing chemotherapy to shrink the tumor, with plan to eventually excised surgically. Presents today with complaints of epigastric abdominal pain that began at about 11:00 this morning. History is reported by patient's stepdaughter and . States that around 11:00 this morning patient complained of abdominal pain, 7 out of 10 in severity. Stepdaughter says this is very unlike him to complain of any pain. And so came to the emergency room by car. Has been eating and drinking with no issues. Denies nausea, vomiting, fevers or chills at home. Seen in the emergency room and CAT scan of the abdomen revealed findings highly suspicious for acute cholecystitis. General surgery was consulted and decision was made that he would likely benefit from surgical intervention but that would not be appropriate for this facility. [facility] was contacted including surgical oncology by the emergency room physician. Dr. Morton was in agreement that transfer to [facility] would be appropriate since he has received care there for his pancreatic stents in recent past. However [facility] is currently at critical capacity. Patient does not require emergent transport at this point. Through discussion with patient, his who is his POA and family, decision was made to accept him here on our service for ongoing pain management, antibiotics with plan to transfer to [facility] once a bed is made available. General surgery Dr. Burk says he is available for any questions and will be following him here. has also said that he will be in contact with the medical inpatient team tomorrow morning. Lengthy discussion was had with patient, patient's POA and and family, and they have verbalized understanding and agreement with this plan albeit with the risk of complications from his gallbladder infection that may have adverse consequences including or emergent transport. Patient's is named Denita, she can be reached at home phone [phone]. Patient's stepdaughter Vida is available by cell phone just in case [phone]. Patient did have a palliative consult while here last time and was made DNR/DNI and this was confirmed during our conversation today. (1) Acalculous cholecystitis: ACUTE -Plan for nonemergent transfer to [facility] for interventional radiologist for percutaneous drainage bladder if pt is getting worse -General surgery Dr. Burk says he is available for any questions and will be following him here. (surgical oncology, [facility] ) has also said that he will be in contact with the medical inpatient team tomorrow morning. -Empiric Vanco and Zosyn begun -Pain management -Not currently complaining of any nausea, no vomiting. Endorses appetite. -Diet ordered for tonight but we will keep n.p.o. after midnight, plan for surgical intervention once transferred non-emergently to [facility]. (2) Pancreatic cancer: Status post biliary stent, last exchange March 18, 2018 Patient is receiving neoadjuvant chemotherapy. Follows with Dr. Carter. - Continued Creon - Follow up outpatient FEN/GI: NPO after midnight DVT ppx: heparin CODE STATUS: DNR/DNI DISPO: Med/surg with plan for non-emergent transfer to [facility] once a bed is made available. Please contact transfer center and Dr. Morton in the a.m. to discuss status. Other ongoing medical problems: (3) CAD (coronary artery disease): History of CAD s/p ND. Stable. - Continued ASA 81mg daily, Atorvastatin 80mg po qHS, Fenofibrate (4) Diabetes: Poorly controlled due to poor pancreatic response. -Continue home 20U lantus daily -ISS (5) Alzheimer disease: states he is at baseline mental status. - Continue home Namenda & Aricept (6) HLD (hyperlipidemia): -Continue home Statin and Fenofibrate (7) COPD (chronic obstructive pulmonary disease): Chronic. Stable. No evidence of exacerbation. - Continue Ipratropium/Albuterol PRN - Continue Budesonide/Formoterol (8) CKD (chronic kidney disease): Patient is at baseline BUN and Cr - Renal dosing where appropriate - Monitor Cr (9) Pressure ulcer of sacral region, stage 3 noted during prior admission 03/29: -will need wound consult for care in AM (10) Severe protein-calorie malnutrition: -seen by nutrition during prior admission, continue shakes (11) Restless leg: Continue Ropinirole (12) Anemia: Baseline hgb ~10-12. Normochromic, normocytic. Patient denies active bleeding. Likely secondary to chemotherapy & cancer. History of Present Illness Chief Complaint: Abdominal pain Primary Care Provider: Georgi Wu MD Mr. Bermudez is an unfortunate 77yo male with history of pancreatic adenocarcinoma stage 1B (T2, N0, M0)Dx in December 2017 by EUS/FNA biopsy of the pancreatic head performed at [facility]). Plan for ongoing chemotherapy to shrink the tumor, with plan to eventually excised surgically. Presents today with complaints of epigastric abdominal pain that began at about 11:00 this morning. History is reported by patient's stepdaughter and . States that around 11:00 this morning patient complained of abdominal pain, 7 out of 10 in severity. Stepdaughter says this is very unlike him to complain of any pain. And so came to the emergency room by car. Has been eating and drinking with no issues. Denies nausea, vomiting, fevers or chills at home. Seen in the emergency room and CAT scan of the abdomen revealed findings highly suspicious for acute cholecystitis. General surgery was consulted and decision was made that he would likely benefit from surgical intervention but that would not be appropriate for this facility. [facility] was contacted including surgical oncology by the emergency room physician. Dr. Morton was in agreement that transfer to [facility] would be appropriate since he has received care there for his pancreatic stents in recent past. However [facility] is currently at critical capacity. Patient does not require emergent transport at this point. Through discussion with patient, his who is his POA and family, decision was made to accept him here on our service for ongoing pain management, antibiotics with plan to transfer to [facility] once a bed is made available. General surgery Dr. Burk says he is available for any questions and will be following him here. has also said that he will be in contact with the medical inpatient team tomorrow morning. Lengthy discussion was had with patient, patient's POA and and family, and they have verbalized understanding and agreement with this plan albeit with the risk of complications from his gallbladder infection that may have adverse consequences including or emergent transport. Patient's is named Denita, she can be reached at home phone [phone]. Patient's stepdaughter Vida is available by cell phone just in case [phone]. Patient did have a palliative consult while here last time and was made DNR/DNI and this was confirmed during our conversation today. Allergies Allergy/AdvReac Type Severity Reaction Status Date / Time benzonatate Allergy Unknown ITCH Verified 04/05/18 15:26 shrimp Allergy Unknown RASH Verified 04/05/18 15:26 pramipexole AdvReac Unknown bp issues Verified 04/05/18 15:26 as per Home Medications Home Medications Medication Instructions Recorded Confirmed Type aspirin [Aspir-81] 81 mg PO QAM 12/29/17 04/05/18 History atorvastatin [Lipitor] 80 mg PO HS 12/29/17 04/05/18 History budesonide-formoterol [Symbicort] 2 puff INHALATION BID 12/29/17 04/05/18 History donepezil [Aricept] 10 mg PO HS 12/29/17 04/05/18 History ipratropium-albuterol [Combivent 1 puff INHALATION QID PRN 12/29/17 04/05/18 History Respimat] memantine [Namenda XR] 21 mg PO QAM 12/29/17 04/05/18 History midodrine 5 mg PO TID 12/29/17 04/05/18 History nitroglycerin [Nitrostat] 0.4 mg SUBLINGUAL DIRECTED PRN 12/29/17 04/05/18 History duloxetine 30 mg PO QAM 02/02/18 04/05/18 History finasteride 5 mg PO QAM 02/02/18 04/05/18 History ondansetron HCl 8 mg PO TID 02/02/18 04/05/18 History fenofibrate micronized 134 mg PO QAM 02/21/18 04/05/18 History insulin aspart U-100 [Novolog 1 dose SUBCUT DIRECTED 02/21/18 04/05/18 History Flexpen U-100 Insulin] [id number] [Creon] 1 cap PO AC 02/21/18 04/05/18 History omeprazole 40 mg PO QAM 02/21/18 04/05/18 History food supplemt, lactose-reduced 1 ea PO TIDM 03/21/18 04/05/18 History [Nutritional Shake] insulin glargine [Lantus Solostar 20 unit SUBCUT HS #0 ml 03/29/18 04/05/18 Rx U-100 Insulin] insulin glulisine U-100 [Apidra 8 units SUBCUT WM 04/05/18 04/05/18 History SoloStar U-100 Insulin] metoprolol tartrate 25 mg PO BID 04/05/18 04/05/18 History ropinirole [Requip] 1 mg PO HS 04/05/18 04/05/18 History Past Med/Surg History Medical History Cholecystitis (Acute) Carotid artery occlusion with cerebral infarction per records from [facility] Pancreatic cancer Sleep apnea does not use any device Hx of myocardial infarction 2006 x2; Hx of agent [place] exposure Hearing deficit Seasonal allergies Pancreatic mass (Acute) Parkinson disease walking is affected - walks slow and shuffles feet; tremors are med controlled Restless leg CAD (coronary artery disease) HLD (hyperlipidemia) Diabetes Alzheimer disease (Chronic) COPD (chronic obstructive pulmonary disease) (Chronic) CKD (chronic kidney disease) (Chronic) stage III Surgical History Hx of cervical spine surgery [facility] 2017 Hx of cardiac cath 2007 - [facility] Hx of heart bypass surgery 2007 - x3 vessels - [facility] Hx of cataract extraction bilateral eyes Hx of appendectomy Hx of removal of cyst testicular; right axilla Hx of hand surgery drained and cleaned d/t cat bite Hx of tooth extraction Family History Other Cancer Social History Current Living Situation: Spouse and Other Current Living Situation Comment: lives at home. Other Information That Helps Us Care for You: No Feels Safe at Home: Yes Safety Concerns: Feels Safe At This Time Smoking Status: Light tobacco smoker Tobacco Type: cigarettes Cigarettes per Day: 4 Do You Dip or Chew Tobacco: No Second Hand Exposure: Yes Tobacco Cessation Education Requested by Patient: No Hx Alcohol Use: No Hx Substance Use: No Beliefs That Will Affect Care: None Preferred Language: Wolof Communication Ability: Effective Prototype Carpenter Required: No Review of Systems All systems reviewed & are unremarkable except as noted in HPI & below Physical Exam 2 Vital Signs (Past 24 Hours): Last Vital Signs Temp 36.3 C L 04/05/18 13:25 Pulse 79 04/05/18 19:57 Resp 18 04/05/18 19:57 BP 130/75 04/05/18 19:57 Pulse Ox 95 04/05/18 19:57 Physical Exam: Vitals noted as above and within normal limits. GENERAL: Awake, alert and oriented x 3, in no distress HENT: Normocephalic, atraumatic. EYES: Normal conjunctiva. Sclera non-icteric. EOMI. NECK: Supple. Full range of motion. no JVD RESPIRATORY: Clear to auscultation. CARDIAC: Regular rate, normal rhythm. Extremities warm and well perfused. Pulses equal. ABDOMEN: Soft, non-distended. Mild tenderness to palpation in RUQ. No rebound or guarding. No masses. Bowel sounds are normal. LOWER EXTREMITIES: Calves are equal size bilaterally and non-tender. No edema. No discoloration. NEURO: No gross focal motor deficits noted. Sensation in tact. CN II-XII in tact. SKIN: Rash not present. No jaundice noted. Results & Data Laboratory Results 04/05/18 04/05/18 04/05/18 Range/Units 19:22 17:12 16:10 WBC (4.8-10.8) K/uL RBC (4.7-6.1) M/uL Hgb (14.0-18.0) g/dL Hct (42-52) % MCV (80-100) fL MCH (25-34) pg MCHC (32-36) g/dL RDW Std Deviation (36.4-46.3) fL RDW Coeff of Erwin (11.5-14.5) % Plt Count (130-400) K/uL MPV (7.4-10.4) fL Immature Gran % (Auto) % Neut % (Auto) % Lymph % (Auto) % [place] % (Auto) % Eos % (Auto) % Baso % (Auto) % Immature Gran # (Auto) (0.00-0.02) K/uL Neut # (Auto) (1.4-6.5) K/uL Lymph # (Auto) (1.2-3.4) K/uL [place] # (Auto) (0.11-0.59) K/uL Eos # (Auto) (0-0.5) K/uL Baso # (Auto) (0-0.2) K/uL PT (9.0-12.0) Seconds INR (0.9-1.1) Sodium (136-145) mmol/L Potassium (3.5-5.1) mmol/L Chloride (98-107) mmol/L Carbon Dioxide (21-32) mmol/L Anion Gap (3-11) BUN (7-18) mg/dl Creatinine (0.6-1.4) mg/dl Est Cr Clr Drug Dosing ml/min Est GFR ( Amer) Est GFR (Non-Af Amer) BUN/Creatinine Ratio (10-20) Glucose (70-99) mg/dl POC Glucose 129 H (70-99) Calcium (8.5-10.1) mg/dl Magnesium (1.8-2.4) mg/dl Total Bilirubin (0.2-1) mg/dl AST (15-37) U/L ALT (12-78) U/L Alkaline Phosphatase (45-117) U/L Troponin I (0-0.045) ng/ml Total Protein (6.4-8.2) gm/dl Albumin (3.4-5.0) gm/dl Globulin (2.5-4.0) gm/dl Albumin/Globulin Ratio (0.9-2) Lipase (73-393) U/L Urine Color Yellow Urine Appearance Clear (Clear) Urine pH 7.5 (4.5-7.5) Ur Specific [place] > 1.045 H (1.000-1.030) Urine Protein Negative (Negative) Urine Glucose (UA) Negative (Negative) Urine Ketones Negative (Negative) Urine Blood Negative (Negative) Urine Nitrite Negative (Negative) Urine Bilirubin Negative (Negative) Urine Urobilinogen Negative (Negative) Ur Leukocyte Esterase Negative (Negative) Urine WBC (Auto) 1-5 (0-5) /hpf Urine RBC (Auto) 0-4 (0-4) /hpf U Hyaline Cast (Auto) 1-5 (0-5) /lpf U Epithel Cells (Auto) 20-30 H (0-5) /lpf Urine Bacteria (Auto) Negative (Negative) Influenza Type A (PCR) Neg for Influ A (Neg) Influenza Type B (PCR) Neg for Influ B (Neg) 04/05/18 04/05/18 04/05/18 Range/Units 14:05 14:05 14:05 WBC 14.41 H (4.8-10.8) K/uL RBC 3.51 L (4.7-6.1) M/uL Hgb 10.2 L (14.0-18.0) g/dL Hct 32.4 L (42-52) % MCV 92.3 (80-100) fL MCH 29.1 (25-34) pg MCHC 31.5 L (32-36) g/dL RDW Std Deviation 56.9 H (36.4-46.3) fL RDW Coeff of Erwin 17.5 H (11.5-14.5) % Plt Count 450 H (130-400) K/uL MPV 9.3 (7.4-10.4) fL Immature Gran % (Auto) 1.4 % Neut % (Auto) 63.6 % Lymph % (Auto) 18.1 % [place] % (Auto) 12.8 % Eos % (Auto) 3.4 % Baso % (Auto) 0.7 % Immature Gran # (Auto) 0.20 H (0.00-0.02) K/uL Neut # (Auto) 9.17 H (1.4-6.5) K/uL Lymph # (Auto) 2.61 (1.2-3.4) K/uL [place] # (Auto) 1.84 H (0.11-0.59) K/uL Eos # (Auto) 0.49 (0-0.5) K/uL Baso # (Auto) 0.10 (0-0.2) K/uL PT 11.1 (9.0-12.0) Seconds INR 1.1 (0.9-1.1) Sodium 136 (136-145) mmol/L Potassium 4.5 (3.5-5.1) mmol/L Chloride 103 (98-107) mmol/L Carbon Dioxide 28 (21-32) mmol/L Anion Gap 5.0 (3-11) BUN 22 H (7-18) mg/dl Creatinine 1.01 (0.6-1.4) mg/dl Est Cr Clr Drug Dosing 58.5 ml/min Est GFR ( Amer) 83.9 Est GFR (Non-Af Amer) 72.4 BUN/Creatinine Ratio 21.5 H (10-20) Glucose 189 H (70-99) mg/dl POC Glucose (70-99) Calcium 8.8 (8.5-10.1) mg/dl Magnesium 1.9 (1.8-2.4) mg/dl Total Bilirubin 0.3 (0.2-1) mg/dl AST 57 H (15-37) U/L ALT 36 (12-78) U/L Alkaline Phosphatase 204 H (45-117) U/L Troponin I < 0.015 (0-0.045) ng/ml Total Protein 6.5 (6.4-8.2) gm/dl Albumin 2.4 L (3.4-5.0) gm/dl Globulin 4.1 H (2.5-4.0) gm/dl Albumin/Globulin Ratio 0.6 L (0.9-2) Lipase 38 L (73-393) U/L Urine Color Urine Appearance (Clear) Urine pH (4.5-7.5) Ur Specific [place] (1.000-1.030) Urine Protein (Negative) Urine Glucose (UA) (Negative) Urine Ketones (Negative) Urine Blood (Negative) Urine Nitrite (Negative) Urine Bilirubin (Negative) Urine Urobilinogen (Negative) Ur Leukocyte Esterase (Negative) Urine WBC (Auto) (0-5) /hpf Urine RBC (Auto) (0-4) /hpf U Hyaline Cast (Auto) (0-5) /lpf U Epithel Cells (Auto) (0-5) /lpf Urine Bacteria (Auto) (Negative) Influenza Type A (PCR) (Neg) Influenza Type B (PCR) (Neg) Diagnostic Findings Chest x-ray unremarkable. Abdominal CT shows presence of metallic common bile duct stent in place, significant gallbladder wall thickening with mild gallbladder wall distention highly suspicious for cholecystitis. Portal vein and IVC patent. Abdominal aortic aneurysm measuring up to 3.6 x 3.6 cm. Unchanged redemonstration of mass in pancreatic head. Chest CTA negative for acute pulmonary embolism. Possible pneumonitis with mild mediastinal adenopathy. Supervising Physician Co-Signing Physician Notes Pt seen/examined following resident MD Parish Escalera. Orders and plan of care formulated with resident. 77 y/o M Hx active pancreatic CA undergoing chemo, CAD, moderate dementia, COPD , DM II, Stage III decub ulcer, protein malnutrition. Presenting with upper quadrant abdominal pain. A CT of the abdomen is consistent with acute cholecystitis. The pt was evaluated by surgery and transfer to a tertiary center was recommended. He was accepted at [facility], however, they did not have any beds for him so he was admitted to [facility] for IV antibiotics pending transfer. OE Thin, elderly M, AAO x 2, no distress S1,2 R CTAB Diffusely tender upper abdomen No CCE No deficits P: Pt placed on IV Zosyn pending transfer to [facility] - will likely need a drain Placed on a SS for DM, IVF, antiemetics and analgesics - additional home emds are nonessential in immediate term Will f/u with his oncologist after DC to cont chemo if tolerated. Resident Activity Tracking Resident Involvement: Resident Care Provided Care Provided: Adult Hospital Medicine
[2018-04-06] MEDS ORDERED: GLUCOSE 40% GEL 15 GM TUBE PO PRN (00:21)
[2018-04-06] MEDS ORDERED: IPRATROPIUM BROMIDE/ALBUTEROL respimat INH INH PRN (00:21)
[2018-04-06] MEDS ORDERED: CARBOHYDRATES FOR HYPOGLYCEMIA PO PRN (00:21)
[2018-04-06] MEDS ORDERED: PIPERACILL/TAZOBAC CONSULT ACTIVE PRN (00:21)
[2018-04-06] MEDS ORDERED: POLYETHYLENE (MIRALAX) 17 GM PACK PO PRN (00:21)
[2018-04-06] MEDS ORDERED: GLUCAGON FOR INJ 1 MG VIAL SQ PRN (00:21)
[2018-04-06] MEDS ORDERED: ACETAMINOPHEN 325 MG TAB PO PRN (00:21)
[2018-04-06] MEDS ORDERED: GLUCOSE 10 TABS/TUBE PO PRN (00:21)
[2018-04-06] MEDS ORDERED: DEXTROSE 50% 50 ML SYRINGE IV PRN (00:21)
[2018-04-06] MEDS ORDERED: NITROGLYCERIN SL 0.4 MG/TAB TAB SL PRN (00:21)
[2018-04-06] MEDS ORDERED: HYDROmorphone INJ 0.5 MG/0.5 ML SYR IV PRN (00:30)
[2018-04-06] MEDS: METOPROLOL TARTRATE 25 MG TAB PO SCH ×2 (00:54→07:54)
[2018-04-06] MEDS: PIPERACILLIN/TAZOBACTAM 3.375 GM in DEXTROSE 5% 100 ML IV SCH ×2 (01:07→07:53)
[2018-04-06] MEDS: BUDESONIDE/FORMOTEROL FUMARATE 80/4.5 60 PUFFS/INHALER INH SCH ×2 (03:25→07:55)
[2018-04-06] MEDS ORDERED: Nursing to Pharmacy Communication ONE (03:30)
[2018-04-06] MEDS ORDERED: SODIUM CHLORIDE 0.9% 1000ML 1,000 ML IV SCH (04:00)
[2018-04-06] MEDS: MIDODRINE HCL 2.5 MG TAB PO SCH ×2 (05:31→11:46)
[2018-04-06] MEDS: INSULIN ASPART 100 UNITS/ML 3 ML PEN SC SCH ×2 (05:33→11:46)
[2018-04-06 05:52] LABS: Basophils # (auto) 0.15 K/uL (0-0.2); Basophils % (auto) 1.3 %; Eosinophils # (auto) 0.97 K/uL (0-0.5); Eosinophils % (auto) 8.7 %; Hematocrit (blood only) 30.8 % (42-52); Hemoglobin 9.8 g/dL (14.0-18.0); Immature Granulocytes # (auto) 0.12 K/uL (0.00-0.02); Immature Granulocytes % (auto) 1.1 %; Lymphocytes # (auto) 2.54 K/uL (1.2-3.4); Lymphocytes % (auto) 22.7 %; Mean Corpuscular Hgb Conc 31.8 g/dL (32-36); Mean Corpuscular Volume 91.9 fL (80-100); Mean Platelet Volume 9.2 fL (7.4-10.4); Monocytes # (auto) 1.57 K/uL (0.11-0.59); Neutrophils # (auto) 5.84 K/uL (1.4-6.5); Neutrophils % (auto) 52.2 %; Platelet Count 402 K/uL (130-400); RDW Coefficient of Variation 17.4 % (11.5-14.5); RDW Standard Deviation 57.7 fL (36.4-46.3); Red Blood Count 3.35 M/uL (4.7-6.1); White Blood Count 11.19 K/uL (4.8-10.8)
[2018-04-06 06:44] LABS: Albumin Globulin Ratio 0.7 (0.9-2); Albumin Level 2.5 gm/dl (3.4-5.0); Bilirubin,Total 0.5 mg/dl (0.2-1); Calcium 8.8 mg/dl (8.5-10.1); Creatinine Clr Calc Pharmacy 55.4 ml/min; Est GFR (African American) 83.9; Est GFR (Non-African American) 72.4; Globulin 3.7 gm/dl (2.5-4.0); Potassium 3.8 mmol/L (3.5-5.1); Total Protein 6.2 gm/dl (6.4-8.2)
[2018-04-06] MEDS ORDERED: FOOD SUPPLEMT LACTOSE REDUCED PO SCH (08:00)
[2018-04-06] MEDS: PANCREAZE (LIPASE 10,500U) CAP PO SCH ×2 (08:07→11:46)
[2018-04-06] MEDS ORDERED: HEPARIN SOD 5,000 UNIT/0.5 ML VIAL SQ SCH (09:00)
[2018-04-06] MEDS ORDERED: FINASTERIDE 5 MG TAB PO SCH (09:00)
[2018-04-06] MEDS ORDERED: ONDANSETRON 8 MG TABLET PO SCH (09:00)
[2018-04-06] MEDS ORDERED: FENOFIBRATE NANOCRYSTALLIZED 145 MG TABLET PO SCH (09:00)
[2018-04-06] MEDS ORDERED: DULOXETINE HCL 30 MG CAP PO SCH (09:00)
[2018-04-06] MEDS ORDERED: PANTOprazole 40 MG TAB PO SCH (09:00)
[2018-04-06] MEDS ORDERED: ASPIRIN 81 MG ECTAB PO SCH (09:00)
[2018-04-06] MEDS ORDERED: VANCOMYCIN HCL 750 MG in SODIUM CHLORIDE 0.9% 250 ML IV SCH (14:00)
[2018-04-06] MEDS ORDERED: INSULIN GLARGINE SOLOSTAR 100 UNITS/ML 3 ML PEN SQ SCH (21:00)
[2018-04-06] MEDS ORDERED: ROPINIROLE HCL 1 MG TABLET PO SCH (21:00)
[2018-04-06] MEDS ORDERED: ATORVASTATIN 40 MG TAB PO SCH (21:00)
[2018-04-06] MEDS ORDERED: DONEPEZIL HCL 10 MG TAB PO SCH (21:00)
--- NOTE | 2018-04-07 18:14 | Discharge Summary ---
Date of Service April 07, 2018 Admission HPI Per Admitting Provider Mr. Bermudez is an unfortunate 77yo male with history of pancreatic adenocarcinoma stage 1B (T2, N0, M0)Dx in December 2017 by EUS/FNA biopsy of the pancreatic head performed at [facility]). Plan for ongoing chemotherapy to shrink the tumor, with plan to eventually excised surgically. Presents today with complaints of epigastric abdominal pain that began at about 11:00 this morning. History is reported by patient's stepdaughter and . States that around 11:00 this morning patient complained of abdominal pain, 7 out of 10 in severity. Stepdaughter says this is very unlike him to complain of any pain. And so came to the emergency room by car. Has been eating and drinking with no issues. Denies nausea, vomiting, fevers or chills at home. Seen in the emergency room and CAT scan of the abdomen revealed findings highly suspicious for acute cholecystitis. General surgery was consulted and decision was made that he would likely benefit from surgical intervention but that would not be appropriate for this facility. [facility] was contacted including surgical oncology by the emergency room physician. Dr. Morton was in agreement that transfer to [facility] would be appropriate since he has received care there for his pancreatic stents in recent past. However [facility] is currently at critical capacity. Patient does not require emergent transport at this point. Through discussion with patient, his who is his POA and family, decision was made to accept him here on our service for ongoing pain management, antibiotics with plan to transfer to [facility] once a bed is made available. General surgery Dr. Burk says he is available for any questions and will be following him here. has also said that he will be in contact with the medical inpatient team tomorrow morning. Lengthy discussion was had with patient, patient's POA and and family, and they have verbalized understanding and agreement with this plan albeit with the risk of complications from his gallbladder infection that may have adverse consequences including or emergent transport. Patient's is named Denita, she can be reached at home phone [phone]. Patient's stepdaughter Vida is available by cell phone just in case [phone]. Patient did have a palliative consult while here last time and was made DNR/DNI and this was confirmed during our conversation today. Admission Exam Per Admitting Provider Vitals noted as above and within normal limits. GENERAL: Awake, alert and oriented x 3, in no distress HENT: Normocephalic, atraumatic. EYES: Normal conjunctiva. Sclera non-icteric. EOMI. NECK: Supple. Full range of motion. no JVD RESPIRATORY: Clear to auscultation. CARDIAC: Regular rate, normal rhythm. Extremities warm and well perfused. Pulses equal. ABDOMEN: Soft, non-distended. Mild tenderness to palpation in RUQ. No rebound or guarding. No masses. Bowel sounds are normal. LOWER EXTREMITIES: Calves are equal size bilaterally and non-tender. No edema. No discoloration. NEURO: No gross focal motor deficits noted. Sensation in tact. CN II-XII in tact. SKIN: Rash not present. No jaundice noted. Principal Diagnosis Cholecystitis Discharge Exam General: Alert, oriented. No acute distress HEENT: NC/AT, PERRLA, EOMI, oropharynx moist. Chest: Nontender to palpation. CV: RRR, Normal s1, s2. No murmurs appreciated Resp: Breath sounds clear bilaterally, no increased effort of breathing. No crackles/rhonchi/rales. Abdomen: BS+. Soft, nontender, nondistended. No guarding. No organomegaly appreciated. Extremities: No edema. Discharge Data Allergies Allergy/AdvReac Type Severity Reaction Status Date / Time benzonatate Allergy Unknown ITCH Verified 04/05/18 15:26 shrimp Allergy Unknown RASH Verified 04/05/18 15:26 pramipexole AdvReac Unknown bp issues Verified 04/05/18 15:26 as per Consultations 04/05/18 20:29 ED Decision to Admit Stat 04/06/18 00:21 Consult Case Management - Discharge Planning Routine 04/06/18 08:53 Burn CD for patient Stat Ordered Studies 04/05/18 13:50 CT abd pelvis IV con only Stat CT angio chest PE protocol Stat Hospital Course (1) Cholecystitis: Mr. Bermudez is an unfortunate 77yo male with history of pancreatic adenocarcinoma stage 1B (T2, N0, M0)Dx in December 2017 by EUS/FNA biopsy of the pancreatic head performed at [facility]). Plan for ongoing chemotherapy to shrink the tumor, with plan to eventually excised surgically. Presents today with complaints of epigastric abdominal pain that began at about 11:00 this morning. History is reported by patient's stepdaughter and . States that around 11:00 this morning patient complained of abdominal pain, 7 out of 10 in severity. Stepdaughter says this is very unlike him to complain of any pain. And so came to the emergency room by car. Has been eating and drinking with no issues. Denies nausea, vomiting, fevers or chills at home. Seen in the emergency room and CAT scan of the abdomen revealed findings highly suspicious for acute cholecystitis. General surgery was consulted and decision was made that he would likely benefit from surgical intervention but that would not be appropriate for this facility. [facility] was contacted including surgical oncology by the emergency room physician. Dr. Morton was in agreement that transfer to [facility] would be appropriate since he has received care there for his pancreatic stents in recent past. However [facility] is currently at critical capacity. Patient does not require emergent transport at this point. Through discussion with patient, his who is his POA and family, decision was made to accept him here on our service for ongoing pain management, antibiotics with plan to transfer to [facility] once a bed is made available. General surgery Dr. Burk says he is available for any questions and will be following him here. has also said that he will be in contact with the medical inpatient team tomorrow morning. Lengthy discussion was had with patient, patient's POA and and family, and they have verbalized understanding and agreement with this plan albeit with the risk of complications from his gallbladder infection that may have adverse consequences including or emergent transport. Patient's is named Denita, she can be reached at home phone [phone]. Patient's stepdaughter Vida is available by cell phone just in case [phone]. Patient did have a palliative consult while here last time and was made DNR/DNI and this was confirmed during our conversation today. (1) Acalculous cholecystitis: ACUTE -Plan for nonemergent transfer to [facility] for interventional radiologist for percutaneous drainage bladder. -General surgery Dr. Burk says he is available for any questions and will be following him here. (surgical oncology, [facility] ) has also said that he will be in contact with the medical inpatient team tomorrow morning. -Empiric Vanco and Zosyn begun -Pain management -Not currently complaining of any nausea, no vomiting. Endorses appetite. -Diet ordered but we will keep n.p.o. after midnight, plan for surgical intervention once transferred non-emergently to [facility]. (2) Pancreatic cancer: Status post biliary stent, last exchange March 18, 2018 Patient is receiving neoadjuvant chemotherapy. Follows with Dr. Carter. - Continued Creon - Follow up outpatient FEN/GI: NPO after midnight DVT ppx: heparin CODE STATUS: DNR/DNI DISPO: Med/surg with plan for non-emergent transfer to [facility] once a bed is made available. Please contact transfer center and Dr. Morton in the a.m. to discuss status. Other ongoing medical problems: (3) CAD (coronary artery disease): History of CAD s/p TX. Stable. - Continued ASA 81mg daily, Atorvastatin 80mg po qHS, Fenofibrate (4) Diabetes: Poorly controlled due to poor pancreatic response. -Continue home 20U lantus daily -ISS (5) Alzheimer disease: states he is at baseline mental status. - Continue home Namenda & Aricept (6) HLD (hyperlipidemia): -Continue home Statin and Fenofibrate (7) COPD (chronic obstructive pulmonary disease): Chronic. Stable. No evidence of exacerbation. - Continue Ipratropium/Albuterol PRN - Continue Budesonide/Formoterol (8) CKD (chronic kidney disease): Patient is at baseline BUN and Cr - Renal dosing where appropriate - Monitor Cr (9) Pressure ulcer of sacral region, stage 3 noted during prior admission 03/29: -will need wound consult for care in AM (10) Severe protein-calorie malnutrition: -seen by nutrition during prior admission, continue shakes (11) Restless leg: Continue Ropinirole (12) Anemia: Baseline hgb ~10-12. Normochromic, normocytic. Patient denies active bleeding. Likely secondary to chemotherapy & cancer. Total Time Total Time Spent Total Time Spent (In Minutes): 60 Total Time Includes: Examination of the Patient, Discharge Planning and Medication Reconciliation Discharge Plan Discharge Items Patient Disposition: Transfer Acute Care Hospital Reason For Visit: CHOLECYSTITIS Discharge Diagnosis: CHOLECYSTITIS IN SETTING OF STAGE 1 PANCREATIC ADENOCARCINOMA Discharge Goals: Decrease discomfort and Therapeutic intervention Activity: As commented below Activity Comment: TOLERATED Non-emergency contact: Hospitalist and Surgeon Call non-emergency contact if: your symptoms worsen and your pain is not controlled Diet: Nothing by mouth Addtl Provider Instructions: You were admitted to [facility] for management of your acute cholecystitis. You are currently being transferred to [facility] for surgical management because of the complexity of your case, given your history of pancreatic cancer that is currently being treated with chemotherapy and requiring surgical managment as well in the future. You will be transferred via ambulance. Please let medical personnel know immediately should you dvelop sudden chest pain, palpitations or trouble breathing. Prescriptions: Continue omeprazole 40 mg Capsule,Delayed Release(Dr/Ec) 40 mg PO QAM RF: 0 fenofibrate micronized 134 mg Capsule 134 mg PO QAM RF: 0 insulin aspart U-100 [Novolog Flexpen U-100 Insulin] 100 unit/mL Insulin Pen 1 dose SUBCUT DIRECTED RF: 0 [id number] [Creon] 12,000-38,000 -60,000 unit Capsule,Delayed Release(Dr/Ec) 1 cap PO AC RF: 0 atorvastatin [Lipitor] 80 mg tablet 80 mg PO HS RF: 0 donepezil [Aricept] 10 mg tablet 10 mg PO HS RF: 0 aspirin [Aspir-81] 81 mg Tablet,Delayed Release (Dr/Ec) 81 mg PO QAM RF: 0 budesonide-formoterol [Symbicort] 80-4.5 mcg/actuation HFA aerosol inhaler 2 puff Inhalation BID RF: 0 midodrine 5 mg tablet 5 mg PO TID RF: 0 nitroglycerin [Nitrostat] 0.4 mg Tablet, Sublingual 0.4 mg Sublingual DIRECTED PRN (Reason: Chest Pain) RF: 0 memantine [Namenda XR] 21 mg capsule,sprinkle,ER 24hr 21 mg PO QAM RF: 0 ipratropium-albuterol [Combivent Respimat] 20-100 mcg/actuation Mist 1 puff INHALATION QID PRN (Reason: COPD Exacerbation) RF: 0 ondansetron HCl 8 mg tablet 8 mg PO TID RF: 0 finasteride 5 mg Tablet 5 mg PO QAM RF: 0 duloxetine 30 mg capsule,delayed release(DR/EC) 30 mg PO QAM RF: 0 food supplemt, lactose-reduced [Nutritional Shake] Liquid 1 ea PO TIDM RF: 0 insulin glargine [Lantus Solostar U-100 Insulin] 100 unit/mL (3 mL) Insulin Pen 20 unit SUBCUT HS Qty: 0 RF: 0 ropinirole [Requip] 1 mg Tablet 1 mg PO HS RF: 0 insulin glulisine U-100 100 unit/mL insulin pen 8 units subcut WM RF: 0 metoprolol tartrate 25 mg tablet 25 mg PO BID RF: 0 Stand-Alone Forms: [facility] Discharge Orders: Discharge Order (Routine); Ordered 04/06/18 Ordered By: Mariaa Wetzel Admission Data Admit Date/Time: 04/05/18 22:11 Attending Provider: Jaswant Elias Admit Provider: Tameka Escalera Primary Care Provider: Georgi Wu Other Providers: Albino Abrams Service: Medical Other Interventions: Discharge Summary Assessment (RN) Last Done: 04/06/18 14:26 DC Date/Time DO NOT enter until pt leaves facility: 04/06/18 13:05 Supervising Physician Co-Signing Physician Notes Patient seen and examined at the bedside with Dr. Wetzel. Agree with history, exam findings, assessment and plan of care as outlined by Dr. Wetzel. In brief, Mr. Bermudez is a 77 year old male with active pancreatic cancer (on chemo), CAD, COPD, DM, protein malnutrition, and dementia admitted with acute cholecytitis. He is awaiting transfer to [facility]. Reviewed H&P by Dr. Tameka Escalera, vital signs, labs and imaging. VSS. Thin, elderly male. Nontoxic appearing. Abdomen nontender. Acute cholecystitis in the setting of active pancreatic cancer. Continue IV zosyn, IVFs, antiemetics. Keep NPO. Patient accepted for transfer to [facility] for possible percutaneous drainage. Bed available. Transfer arrangements made. Resident Activity Tracking Resident Involvement: Resident Care Provided Care Provided: Adult Hospital Medicine
[2018-04-08] MEDS ORDERED: VANCOMYCIN TROUGH ONE (07:30)
== END 2018-04-06 13:05 | disposition short-term general hospital (02) | DRG 444 ==
LOC: ED 13:16 → SUATTDRO 22:11 → 4E 22:11